=== PATIENT | female | born 1955 | race African-American/Black ===

== ENCOUNTER 2016-06-27 19:51 | Inpatient (IN) | payer OTHER ==
[~2016-06-27] VITALS: Ht 167.6 cm; Wt 83.9 kg
[~2016-06-27 19:51] MED LIST: ALBU18HF2 INH; AMLO5TAB2 PO; ATOR40TA GT; BENZ200C45 PO; BUDE10.2 IH; CARI350T27 PO; CARV25TA2 PO; DOCU-270 PO; FURO80TA3 PO; GLIP10TA11 PO; HYDR100T27 PO; LOSA50TA21 PO; METO5TAB2 PO; MONT10TA22 PO; OMEP40CA37 PO; OXYC-164 PO; TEMA15CA PO
--- NOTE | 2016-06-27 20:04 | NUR ---
PT BIB DAUGHTER TO ER BED 09. C/O NAUSEA AND VOMITING. JUST CAME IN FROM DIALYSIS. NOTED COUGH AND CONGESTION. HX OF BRONCHITIS. ALSO PRESENTS W/ LT THIGH AREA BRUSING. DAUGTHER STATES GETTING WORST. PLACED ON MONITOR. AWAITINGMD EVAL.
--- NOTE | 2016-06-27 20:06 | NUR ---
DR KING AT BEDSIDE FOR EVAL.
--- NOTE | 2016-06-27 20:25 | NUR ---
IV LINE STARTED BLOOD DRAWN ANS SENT TO LAB.
[2016-06-27 20:34] LABS: BASOPHILS % (AUTO) 0.3 % (0.0-2.0); EOSINOPHILS # (AUTO) 0.2 /CMM (0.0-0.7); EOSINOPHILS % (AUTO) 1.9 % (0.0-6.0); HEMATOCRIT 40 % (33-45); HEMOGLOBIN 13.1 g/dL (11.5-14.8); LYMPHOCYTES # (AUTO) 0.8 /CMM (0.8-4.8); LYMPHOCYTES % (AUTO) 6.3 % (20.0-44.0); MEAN CORPUSCULAR HEMOGLOBIN 32 PG (26.0-33.0); MEAN CORPUSCULAR HGB CONC 33 g/dl (31.0-36.0); MEAN CORPUSCULAR VOLUME 98 fL (82-100); MONOCYTES # (AUTO) 1.5 /CMM (0.1-1.30); MONOCYTES % (AUTO) 11.9 % (2.0-12.0); NEUTROPHILS # (AUTO) 10.3 /CMM (1.8-8.9); NEUTROPHILS % (AUTO) 79.6 % (43.0-81.0); PLATELET COUNT (AUTO) 379 /CMM (150-450); RDW COEFFICIENT OF VARIATION 14.9 (11.5-15.0); RED BLOOD CELL COUNT(AUTO) 4.11 MIL/uL (4.0-5.2); WHITE BLOOD COUNT (AUTO) 12.8 K/uL (4.3-11.0)
[2016-06-27 20:41] LABS: CALCIUM, SERUM 10.7 mg/dL (8.5-10.1); CARBON DIOXIDE 25 mmol/L (21-32); CHLORIDE 97 mmol/L (98-107); CREATININE 6.1 mg/dL (0.6-1.3); GFR 9 mL/min (>60); GLUCOSE 117 mg/dL (74-106); POTASSIUM 4.6 mmol/L (3.5-5.1); SODIUM SERUM 134 mmol/L (136-145); UREA NITROGEN, BLOOD 38 mg/dL (7-18)
[2016-06-27 20:45] LABS: INR 2.4 (0.87-1.13); PROTHROMBIN TIME 26.1 SECS (9.5-12.7)
[2016-06-27 20:47] LABS: ALANINE AMINOTRANSFERASE 16 U/L (12-78); ALBUMIN 2.8 g/dL (3.4-5.0); ALKALINE PHOSPHATASE 113 U/L (46-116); ASPARTATE AMINOTRANSFERASE 11 U/L (15-37); BILIRUBIN,DIRECT 0.1 mg/dL (0.0-0.2); BILIRUBIN,TOTAL 1.1 mg/dL (0.2-1.0); TOTAL PROTEIN, SERUM 6.9 g/dL (6.4-8.2)
[2016-06-27 20:49] LABS: TROPONIN I < 0.017 ng/mL (0.00-0.056)
[2016-06-27 20:56] LABS: LACTIC ACID 0.7 mmol/L (0.4-2.0)
[2016-06-27] MEDS ORDERED: VANCOMYCIN 1 GM in IV D5W 250 ML IV ONE (21:30)
[2016-06-27 21:33] LABS: SERUM AMMONIA 7 umol/L (11-32)
[2016-06-27] MEDS ORDERED: IV SET PRIMARY PUMP SET 1 EA INFUS.SET MC ONE (21:37)
[2016-06-27] MEDS ORDERED: VANCOMYCIN 1 GM VIAL ONE (21:37)
[2016-06-27] MEDS ORDERED: IV D5W 250 ML IV ONE (21:37)
--- NOTE | 2016-06-27 21:58 | NUR ---
U/S TECH AT BEDSIDE FOR LLE DUPLEX ULTRASOUND.
[2016-06-27] MEDS ORDERED: Z GUARD REMEDY 2 OZ OINT TP PRN (22:00)
[2016-06-27] MEDS ORDERED: ONDANSETRON HCL/PF 4 MG/2 ML VIAL IVP PRN (22:00)
[2016-06-27] MEDS ORDERED: MAGNESIUM HYDROXIDE 30 ML UDC PO PRN (22:00)
--- NOTE | 2016-06-27 22:02 | NUR ---
REPORT GIVEN TO BECKY. PT AWAITING TRANSFER TO FLOOR.
[2016-06-27 22:30] VITALS: BP 123/83
--- NOTE | 2016-06-27 22:30 | NUR ---
METAL MOCKUP MAKER INITIAL NOTE RECEIVED REPORT FROM MORIAH DORAN RN. PT WAS BROUGHT IN BY DAUGHTER FOLLOWING DIALYSIS. PT IS IN BED. SHE IS A/O X3 BUT IS SLUGGISH TO RESPOND TO QUESTIONS. LUNG SOUNDS DIMINISHED. BOWEL SOUNDS PRESENT. LEFT AV SHUNT DIALYSIS ACCESS, SCHEDULED T, TH, SAT BUT MISSED TH AND WENT TODAY INSTEAD. RIGHT 20G AC. LEFT LOWER EXTREMITY SWELLING, REDNESS PAIN. AWAITING ULTRASOUND RESULTS TO R/O DVT. MULTIPLE SKIN ISSUES, PICTURES TAKEN AND FILED IN CHART. BED IN LOW LOCKED POSITION WITH CALL LIGHT IN REACH. WILL CONTINUE TO MONITOR.
[2016-06-27 22:37] VITALS: BP 123/83
[2016-06-27] MEDS ORDERED: VANCOMYCIN 1 GM in IV D5W 250 ML IV SCH (23:00)
[2016-06-27] MEDS ORDERED: DEXTROSE 50%-WATER 50 ML DISP.SYRIN IV PRN (23:00)
--- NOTE | 2016-06-27 23:05 | NUR ---
DRAWING CHECKER- SIDRA VALENTE GIVEN IN ER.
[2016-06-28] VITALS: BP 138/67
[2016-06-28 04:00] VITALS: BP 121/49
[2016-06-28] MEDS: BLOOD SUGAR DIAGNOSTIC 1 EACH STRIP VI SCH ×4 (06:44→21:46)
--- NOTE | 2016-06-28 07:00 | NUR ---
RN NOTE RECEIVED ON ON BED, A/O X2, RESPIRATION EVEN AND UNLABORED, ON TELE SR IN 60'S , BUT IS SLUGGISH TO RESPOND TO QUESTIONS. LUNG SOUNDS DIMINISHED. BOWEL SOUNDS PRESENT. IV SITE ON R AC #20 CDI, SR UPx3, BED IN LOWEST POSITION AND LOCKED , CALL LIGHT WITHIN EASY REACH , WILL CONTINUE TO MONITOR PT CLOSELY AND NOTIFY MD FOR ANY SIGNIFICANT CHANGES .
[2016-06-28 07:11] LABS: BASOPHILS % (AUTO) 0.3 % (0.0-2.0); EOSINOPHILS # (AUTO) 0.4 /CMM (0.0-0.7); EOSINOPHILS % (AUTO) 2.9 % (0.0-6.0); HEMATOCRIT 37 % (33-45); HEMOGLOBIN 12.6 g/dL (11.5-14.8); LYMPHOCYTES # (AUTO) 1.6 /CMM (0.8-4.8); LYMPHOCYTES % (AUTO) 13.2 % (20.0-44.0); MEAN CORPUSCULAR HEMOGLOBIN 33 PG (26.0-33.0); MEAN CORPUSCULAR HGB CONC 34 g/dl (31.0-36.0); MEAN CORPUSCULAR VOLUME 99 fL (82-100); MONOCYTES # (AUTO) 1.9 /CMM (0.1-1.30); MONOCYTES % (AUTO) 15.6 % (2.0-12.0); NEUTROPHILS # (AUTO) 8.2 /CMM (1.8-8.9); PLATELET COUNT (AUTO) 321 /CMM (150-450); RDW COEFFICIENT OF VARIATION 15.8 (11.5-15.0); RED BLOOD CELL COUNT(AUTO) 3.78 MIL/uL (4.0-5.2)
[2016-06-28 07:44] LABS: ALBUMIN 2.6 g/dL (3.4-5.0); BILIRUBIN,TOTAL 1.2 mg/dL (0.2-1.0); CALCIUM, SERUM 10.1 mg/dL (8.5-10.1); CREATININE 6.9 mg/dL (0.6-1.3); MAGNESIUM 2.9 mg/dL (1.8-2.4); PHOSPHORUS 5.8 mg/dL (2.5-4.9); TOTAL PROTEIN, SERUM 6.5 g/dL (6.4-8.2)
[2016-06-28 08:00] VITALS: BP 137/53
[2016-06-28 08:53] LABS: EOSINOPHILS % (MANUAL) 4 % (0-4); LYMPHOCYTES % (MANUAL) 16 % (16-48); MONOCYTES % (MANUAL) 15 % (0-11.0); NEUTROPHILS % (MANUAL) 65 (42-76); PLATELET ESTIMATE ADEQUATE
[2016-06-28 08:54] LABS: ANISOCYTOSIS 1+
[2016-06-28] MEDS ORDERED: BENZONATATE 100 MG CAPSULE PO PRN (09:00)
[2016-06-28] MEDS ORDERED: FUROSEMIDE 80 MG TABLET PO SCH (09:00)
[2016-06-28] MEDS: AMLODIPINE BESYLATE 5 MG TABLET PO SCH (09:12)
[2016-06-28] MEDS: CARVEDILOL 12.5 MG TABLET PO SCH ×2 (09:13→21:47)
[2016-06-28] MEDS: hydrALAZINE HCL 50 MG TABLET PO SCH ×3 (09:13→17:15)
[2016-06-28] MEDS: DOCUSATE SODIUM 100 MG CAPSULE PO SCH (09:13)
[2016-06-28] MEDS: PANTOPRAZOLE 40 MG VIAL IV SCH (09:14)
[2016-06-28] MEDS: ATORVASTATIN 40 MG TABLET PO SCH (09:14)
[2016-06-28] MEDS: LOSARTAN POTASSIUM 50 MG TABLET PO SCH ×2 (09:14→17:14)
[2016-06-28] MEDS: MONTELUKAST SODIUM (10MG) 10 MG TABLET PO SCH (09:14)
[2016-06-28] MEDS: FUROSEMIDE 40 MG TABLET PO SCH (09:20)
[2016-06-28] MEDS: glipiZIDE 10 MG TABLET PO SCH ×3 (09:20→17:00)
[2016-06-28] MEDS ORDERED: VANCOMYCIN 500 MG in IV D5W 100 ML IV PRN (09:30)
[2016-06-28 10:25] LABS: TROPONIN I < 0.017 ng/mL (0.00-0.056)
[2016-06-28] MEDS: METOCLOPRAMIDE HCL 10 MG TABLET PO SCH (11:07)
[2016-06-28 12:00] VITALS: BP 141/65
[2016-06-28 12:03] LABS: THYROID STIMULATING HORMONE 1.002 uIU/mL (0.358-3.74)
[2016-06-28] MEDS: HYDROCODONE/APAP 5/325MG 1 EACH TABLET PO PRN (14:34)
[2016-06-28] MEDS ORDERED: FEE PK DOSING 1 MIN EA MC ONE (14:55)
[2016-06-28 16:00] VITALS: BP 116/49
--- NOTE | 2016-06-28 16:33 | NUR ---
RN NOTES PT'S DAUGHTER STATED WILL BRING SYMBICORT FROM HOME
--- NOTE | 2016-06-28 17:00 | NUR ---
RN NOTES DR GARCIA NOTIFIED REGARDING LOW BG , GLUCOTROL HELD PER MD ORDER , PT IS A/O , NO HYPOGLYCEMIA SIGN AND SYMPTON NOTED. ENCOURAGED PO , CONTINUE TO MONITOR PT CLOSELY ,
--- NOTE | 2016-06-28 17:00 | NUR ---
RN NOTES BG=49, PT IS SLIGHTLY DRAWZY , WAKES UP TO VERBAS STIMULI, AND VERBALLY RESPONDING, ONE AMP OF D50 GIVEN IV , BG WENT UP TO 193,
--- NOTE | 2016-06-28 18:50 | NUR ---
RN NOTES PT STABLE , NO DISTRESS NOTED MEDICATED PER MD ORDER ,SR UP x3, BED ALARM ON , NO DISTRESS NOTED
--- NOTE | 2016-06-28 19:30 | NUR ---
MS RN OPENING NOTES: PATIENT SITTING ON BED, AOX2, ON ROOM AIR, BREATHING EVEN AND UNLABORED. BREATH SOUNDS CLEAR TO AUSCULTATION. APPEARS CALM BUT DOES STATE THAT SHE HAS GENERALIZED PAIN A 7-8/10. PIV ACCESS OVER RAC G 20 INTACT AND PATENT TO FLUSH. REINFORCED DRESSING. PATIENT HAS UZMA OLD AV SHUNT, THAT IS NEGATIVE FOR BRUIT. PROVIDED FOR COMFORT AND SAFETY. ADVISED PATIENT ON NPO FOR PROCEDURE TOMORROW. WILL CONT TO MONITOR. Addendum: 06/30/16 at 0017 by PRUDENCIO SANTO RN PLEASE DISREGARD. WRONG DATE OF DOCUMENTATION
--- NOTE | 2016-06-28 19:30 | NUR ---
MS RN INITIAL NOTE RECEIVED REPORT FROM FRANDY SILVER. PT IN BED, AWAKE AND ALERT WITH PERIODS OF CONFUSION. UPON ENTERING ROOM PT WAS ATTEMPTING TO CLIMB OUT OF BED AND WAS VERBALLY AGGRESSIVE. PT WAS REDIRECTED AND PUT BACK IN BED. LUNG SOUNDS DIMINISHED. BOWEL SOUNDS PRESENT. PULSES PRESENT IN ALL EXTREMITIES. LEFT UPPER ARM AV SHUNT, BRUIT NOT PRESENT, THRILL PRESENT, HD NURSE AND NEPHROLOGY GROUP NOTIFIED. IV PATENT AND INTACT. BED IN LOW LOCKED POSITION, CALL LIGHT WITHIN REACH. WILL CONTINUE TO MONITOR. BED ALARM ON FOR SAFETY PURPOSES.
[2016-06-28 20:00] VITALS: BP 137/55
[2016-06-29 04:00] VITALS: BP 126/54
[2016-06-29 07:27] LABS: BASOPHILS % (AUTO) 0.2 % (0.0-2.0); EOSINOPHILS # (AUTO) 0.3 /CMM (0.0-0.7); EOSINOPHILS % (AUTO) 2.6 % (0.0-6.0); HEMATOCRIT 37 % (33-45); HEMOGLOBIN 12.1 g/dL (11.5-14.8); LYMPHOCYTES # (AUTO) 1.8 /CMM (0.8-4.8); LYMPHOCYTES % (AUTO) 15.7 % (20.0-44.0); MEAN CORPUSCULAR HEMOGLOBIN 32 PG (26.0-33.0); MEAN CORPUSCULAR HGB CONC 33 g/dl (31.0-36.0); MEAN CORPUSCULAR VOLUME 99 fL (82-100); MONOCYTES # (AUTO) 1.8 /CMM (0.1-1.30); MONOCYTES % (AUTO) 16.3 % (2.0-12.0); NEUTROPHILS # (AUTO) 7.3 /CMM (1.8-8.9); NEUTROPHILS % (AUTO) 65.2 % (43.0-81.0); PLATELET COUNT (AUTO) 334 /CMM (150-450); RDW COEFFICIENT OF VARIATION 15.4 (11.5-15.0); RED BLOOD CELL COUNT(AUTO) 3.76 MIL/uL (4.0-5.2); WHITE BLOOD COUNT (AUTO) 11.2 K/uL (4.3-11.0)
--- NOTE | 2016-06-29 07:29 | NUR ---
RN MS INITIAL NOTES RECEIVED REPORT FROM PM NURSE, PT AWAKE AND ALERT A&O X2 CONFUSED AT TIMES, ON RA SAT ABOVE 97%, RT AC 20 G LT AV SHUNT, ALL INTACT, ALL NEEDS MET, ALL SAFETY MEASURES INITIATED, SIDE RAILS X2, BED LOW AND LOCKED, CALL LIGHT WITHIN REACH.
[2016-06-29] MEDS: BLOOD SUGAR DIAGNOSTIC 1 EACH STRIP VI SCH ×4 (07:31→22:02)
[2016-06-29 07:49] LABS: ALBUMIN 2.6 g/dL (3.4-5.0); BILIRUBIN,TOTAL 1.2 mg/dL (0.2-1.0); CALCIUM, SERUM 9.9 mg/dL (8.5-10.1); PHOSPHORUS 5.1 mg/dL (2.5-4.9); POTASSIUM 4.6 mmol/L (3.5-5.1); TOTAL PROTEIN, SERUM 6.7 g/dL (6.4-8.2)
[2016-06-29 08:00] VITALS: BP 141/68
[2016-06-29] MEDS: PANTOPRAZOLE 40 MG VIAL IV SCH (08:33)
[2016-06-29] MEDS: SYMBICORT INH SCH ×2 (08:33→16:14)
[2016-06-29] MEDS: MONTELUKAST SODIUM (10MG) 10 MG TABLET PO SCH (08:33)
[2016-06-29] MEDS: hydrALAZINE HCL 50 MG TABLET PO SCH ×3 (08:34→16:14)
[2016-06-29] MEDS: METOCLOPRAMIDE HCL 10 MG TABLET PO SCH (08:34)
[2016-06-29] MEDS: ATORVASTATIN 40 MG TABLET PO SCH (08:35)
[2016-06-29] MEDS: AMLODIPINE BESYLATE 5 MG TABLET PO SCH (08:35)
[2016-06-29] MEDS: glipiZIDE 10 MG TABLET PO SCH ×3 (08:35→16:13)
[2016-06-29] MEDS: CARVEDILOL 12.5 MG TABLET PO SCH ×2 (08:35→21:04)
[2016-06-29] MEDS: LOSARTAN POTASSIUM 50 MG TABLET PO SCH ×2 (08:35→16:14)
[2016-06-29] MEDS: DOCUSATE SODIUM 100 MG CAPSULE PO SCH (08:35)
[2016-06-29] MEDS: FUROSEMIDE 40 MG TABLET PO SCH (08:35)
[2016-06-29 09:25] LABS: BAND % (MANUAL) 2 % (0.0-5.0); LYMPHOCYTES % (MANUAL) 15 % (16-48); NEUTROPHILS % (MANUAL) 66 (42-76)
[2016-06-29 09:26] LABS: ANISOCYTOSIS 1+; BASOPHILS % (MANUAL) 0 % (0.0-2.0); EOSINOPHILS % (MANUAL) 3 % (0-4); MONOCYTES % (MANUAL) 14 % (0-11.0); PLATELET ESTIMATE ADEQUATE
--- NOTE | 2016-06-29 11:49 | NUR ---
RN MS NOTES PT HAS CLOTTED LT AV SHUNT, DR MATTEHWS AWARE AND STATED WILL NEED NEW HD ACCESS TO RECEIVE HD.
[2016-06-29] MEDS ORDERED: SODIUM POLYSTYRENE SULFONATE 15 G/60 ML BOTTLE PO ONE (15:00)
[2016-06-29 16:00] VITALS: BP 96/67
[2016-06-29] MEDS: ACETAMINOPHEN 325 MG TABLET PO PRN (16:18)
--- NOTE | 2016-06-29 18:21 | NUR ---
RN MS ENDING NOTES PT STABLE WITH NO ACUTE CHANGES NOTED, CONSENT SIGNED WITH DR ALMANZA FOR SURGERY TO TOMORROW FOR AV ACCESS, ALL NEEDS MET, PT WILL BE NPO AFTER MIDNIGHT.
--- NOTE | 2016-06-29 19:30 | NUR ---
MS RN OPENING NOTES: PATIENT SITTING ON BED, AOX2, ON ROOM AIR, BREATHING EVEN AND UNLABORED. BREATH SOUNDS CLEAR TO AUSCULTATION. APPEARS CALM BUT DOES STATE THAT SHE HAS GENERALIZED PAIN A 7-8/10. PIV ACCESS OVER RAC G 20 INTACT AND PATENT TO FLUSH. REINFORCED DRESSING. PATIENT HAS UZMA OLD AV SHUNT, THAT IS NEGATIVE FOR BRUIT. PROVIDED FOR COMFORT AND SAFETY. ADVISED PATIENT ON NPO FOR PROCEDURE TOMORROW. WILL CONT TO MONITOR.
[2016-06-29 20:00] VITALS: BP_SYST 122; BP_SYST 126; BP_DIAS 67
[2016-06-29] MEDS: HYDROCODONE/APAP 5/325MG 1 EACH TABLET PO PRN (21:05)
--- NOTE | 2016-06-29 21:06 | NUR ---
RN NOTES: PATIENT COMPLAINED OF 7/10 GENERALIZED PAIN (DESCRIBED "ALL OVER"). ADMINISTERED NORCO 5-325 MG PO. WILL CONT TO MONITOR.
[2016-06-30 04:00] VITALS: BP 124/53
[2016-06-30] MEDS: ACETAMINOPHEN 325 MG TABLET PO PRN (05:40)
[2016-06-30] MEDS: BLOOD SUGAR DIAGNOSTIC 1 EACH STRIP VI SCH ×4 (06:33→21:50)
--- NOTE | 2016-06-30 06:45 | NUR ---
MS RN CLOSING NOTES: PATIENT IN BED, AOX2, ON ROOM AIR, BREATHING EVEN AND UNLABORED. APPEARS CALM AND IN NO DISTRESS. MAINTAINED ON NPO FOR PROCEDURE TODAY. BLOOD SUGAR CHECKED AT 93MG/DL. DUE MEDS GIVEN. PROVIDED FOR COMFORT AND SAFETY. WILL ENDORSE TO AM RN FOR TAWNY.
[2016-06-30 06:48] LABS: BASOPHILS # (AUTO) 0.1 /CMM (0.0-0.2); BASOPHILS % (AUTO) 0.6 % (0.0-2.0); EOSINOPHILS # (AUTO) 0.4 /CMM (0.0-0.7); HEMATOCRIT 38 % (33-45); HEMOGLOBIN 12.5 g/dL (11.5-14.8); LYMPHOCYTES # (AUTO) 1.5 /CMM (0.8-4.8); LYMPHOCYTES % (AUTO) 15.4 % (20.0-44.0); MEAN CORPUSCULAR HEMOGLOBIN 32 PG (26.0-33.0); MEAN CORPUSCULAR HGB CONC 33 g/dl (31.0-36.0); MEAN CORPUSCULAR VOLUME 98 fL (82-100); MONOCYTES # (AUTO) 1.5 /CMM (0.1-1.30); MONOCYTES % (AUTO) 14.8 % (2.0-12.0); NEUTROPHILS # (AUTO) 6.4 /CMM (1.8-8.9); NEUTROPHILS % (AUTO) 65.2 % (43.0-81.0); PLATELET COUNT (AUTO) 333 /CMM (150-450); RDW COEFFICIENT OF VARIATION 15.3 (11.5-15.0); RED BLOOD CELL COUNT(AUTO) 3.88 MIL/uL (4.0-5.2); WHITE BLOOD COUNT (AUTO) 9.8 K/uL (4.3-11.0)
[2016-06-30 07:00] LABS: INR 1.39 (0.87-1.13); PROTHROMBIN TIME 15.2 SECS (9.5-12.7)
[2016-06-30 07:14] LABS: CALCIUM, SERUM 9.5 mg/dL (8.5-10.1); MAGNESIUM 2.9 mg/dL (1.8-2.4); PHOSPHORUS 5.5 mg/dL (2.5-4.9); POTASSIUM 5.4 mmol/L (3.5-5.1)
--- NOTE | 2016-06-30 07:15 | NUR ---
RN INITIAL NOTES RECEIVED PT IN BED, AWAKE, A/O X4, ABLE TO MAKE NEEDS KNOWN, WITH PERIODS OF CONFUSION, PT IS ON RA, SATING WELL, NO S.S OF RESP. DISTRESS OR SOB NOTED AT THIS TIME, PT IS CURRENTLY NPO AT THIS TIME, PT IS NOTED WITH MULTIPLE SKIN ISSUES, PT HAS RAC # 20G,SL, C/D/I/PATENT, FLUSHING WELL, NO S/S OF INFECTION/ INFILTRATION NOTED AT THIS TIME, UZMA AV SHUNT, - BRUIT, - THRILL, ALL SAFETY MEASURES IN PLACE AT ALL TIMES,CALL LIGHT WITHIN EASY REACH, WILL MONITOR PT CLOSELY FOR CHANGES
[2016-06-30 07:21] LABS: CREATININE 8.3 mg/dL (0.6-1.3)
[2016-06-30 08:00] VITALS: BP 103/49
[2016-06-30] MEDS: DOCUSATE SODIUM 100 MG CAPSULE PO SCH (08:29)
[2016-06-30] MEDS: CARVEDILOL 12.5 MG TABLET PO SCH ×2 (08:29→21:00)
[2016-06-30] MEDS: hydrALAZINE HCL 50 MG TABLET PO SCH ×3 (08:29→17:00)
[2016-06-30] MEDS: LOSARTAN POTASSIUM 50 MG TABLET PO SCH ×2 (08:30→17:00)
[2016-06-30] MEDS: ATORVASTATIN 40 MG TABLET PO SCH (08:30)
[2016-06-30] MEDS: AMLODIPINE BESYLATE 5 MG TABLET PO SCH (08:30)
[2016-06-30] MEDS: FUROSEMIDE 40 MG TABLET PO SCH (08:30)
[2016-06-30] MEDS: glipiZIDE 10 MG TABLET PO SCH ×3 (08:30→17:04)
[2016-06-30] MEDS: METOCLOPRAMIDE HCL 10 MG TABLET PO SCH (08:31)
[2016-06-30] MEDS: MONTELUKAST SODIUM (10MG) 10 MG TABLET PO SCH (08:31)
[2016-06-30] MEDS: PANTOPRAZOLE 40 MG VIAL IV SCH (09:01)
[2016-06-30] MEDS: SYMBICORT INH SCH ×2 (09:01→17:05)
--- NOTE | 2016-06-30 11:27 | NUR ---
RN NOTES BS 65, PT IS CURRENTLY NPO FOR SURGERY
--- NOTE | 2016-06-30 12:47 | NUR ---
RN NOTES PT WAS TAKEN TO OR
[2016-06-30] MEDS ORDERED: LIDOCAINE HCL/PF 1% 30 ML SDV ONE (12:55)
[2016-06-30] MEDS ORDERED: HEPARIN SODIUM, PORCINE 1,000 UNIT/ML VIAL ONE (12:55)
[2016-06-30] MEDS ORDERED: FENTANYL PF 100MCG/2ML AMPUL ONE (13:06)
[2016-06-30] MEDS ORDERED: MIDAZOLAM HCL 2 MG/2ML VIAL ONE (13:06)
[2016-06-30] MEDS ORDERED: VANCOMYCIN 1 GM in IV D5W 250ml IV ONE (13:30)
[2016-06-30] MEDS ORDERED: BUPIVACAINE 0.5 % PF 150 MG/30 ML VIAL ONE (15:02)
[2016-06-30] MEDS ORDERED: CELLULOSE,OXIDIZED 1 EACH EACH MC ONE (15:03)
[2016-06-30 16:00] VITALS: BP 122/47
[2016-06-30 17:00] VITALS: BP 122/47
--- NOTE | 2016-06-30 17:00 | NUR ---
RN NOTES PT RETURNED BACK FROM OR, PT IN STABLE CONDITION, VVS, PT PLACED ON 2L NC, WILL MONITOR CLOSELY FOR CHANGES
[2016-06-30] MEDS: HYDROCODONE/APAP 5/325MG 1 EACH TABLET PO PRN (17:09)
[2016-06-30 17:29] LABS: BASOPHILS # (AUTO) 0.1 /CMM (0.0-0.2); BASOPHILS % (AUTO) 0.5 % (0.0-2.0); EOSINOPHILS # (AUTO) 0.5 /CMM (0.0-0.7); EOSINOPHILS % (AUTO) 4.2 % (0.0-6.0); HEMATOCRIT 36 % (33-45); HEMOGLOBIN 11.7 g/dL (11.5-14.8); LYMPHOCYTES # (AUTO) 1.6 /CMM (0.8-4.8); LYMPHOCYTES % (AUTO) 13.6 % (20.0-44.0); MEAN CORPUSCULAR HEMOGLOBIN 32 PG (26.0-33.0); MEAN CORPUSCULAR HGB CONC 33 g/dl (31.0-36.0); MEAN CORPUSCULAR VOLUME 99 fL (82-100); MONOCYTES # (AUTO) 1.2 /CMM (0.1-1.30); MONOCYTES % (AUTO) 10.4 % (2.0-12.0); NEUTROPHILS # (AUTO) 8.4 /CMM (1.8-8.9); NEUTROPHILS % (AUTO) 71.3 % (43.0-81.0); PLATELET COUNT (AUTO) 387 /CMM (150-450); RDW COEFFICIENT OF VARIATION 15.6 (11.5-15.0); RED BLOOD CELL COUNT(AUTO) 3.64 MIL/uL (4.0-5.2); WHITE BLOOD COUNT (AUTO) 11.8 K/uL (4.3-11.0)
[2016-06-30 17:49] LABS: CALCIUM, SERUM 9.3 mg/dL (8.5-10.1); POTASSIUM 4.9 mmol/L (3.5-5.1)
[2016-06-30 17:55] LABS: CREATININE 8.7 mg/dL (0.6-1.3)
[2016-06-30] MEDS ORDERED: SECONDARY IV SET 1 EA INFUS.SET MC ONE (18:08)
--- NOTE | 2016-06-30 18:25 | NUR ---
RN CLOSING NOTES PT REMAINED STABLE DURING SHIFT, ALL MEDICATIONS GIVEN, PT KEPT CLEAN AND DRY, IV, REMAINS C/D/I/PATENT, PT IS CURRENTLY RECEIVING HD, ALL TREATMENTS GIVEN, ALL SAFETY MEASURES IN PLACE AT ALL TIMES, CALL LIGHT WITHIN EASY, WILL GIVE REPORT TO PM RN FOR TAWNY
[2016-06-30] MEDS ORDERED: ALBUMIN 25% 25 GM in PREMIX 1 EA IV ONE (19:00)
[2016-06-30 20:00] VITALS: BP 101/49
--- NOTE | 2016-06-30 20:38 | NUR ---
SPOKE TO PHARMACIST ABOUT PT'S SCHEDULED 1300 VANCOMYCIN 1 GM THAT WAS NOT GIVEN. PT WAS GIVEN VANCOMYCIN 1 GM PREOP TODAY. PER PHARMACIST, DO NOT ADMINISTER MED. VANCO TROUGH WILL BE DRAWN TOMORROW MORNING AT 0700 AND WILL FOLLOW-UP THEN. PRIMARY NURSE ESTEFANIA MADE AWARE. WILL CONTINUE TO MONITOR.
[2016-06-30 21:00] VITALS: BP 101/49
--- NOTE | 2016-06-30 21:05 | NUR ---
RN NOTE RECEIVED REPORT. PT AAOX3, CONFUSED AT TIMES. NO C/O OF PAIN OR DISCOMFORT AT THIS TIME.. BREATHING EVEN AND NON-LABORED ON ROOM AIR. L ARM AV DRESSING INTACT, NO SIGNS OF BLEEDING. RAC IV INTACT AND PATENT S/L. ALL NEEDS ATTEND TO AT THIS TIME, CALL LIGHT IN REACH WILL ONT TO MONITOR.
[2016-06-30] MEDS: *INSULIN REGULAR(HUMULIN R)HUM 100 UNIT/ML VIAL SQ PRN (21:46)
[2016-07-01 04:00] VITALS: BP 114/51
[2016-07-01] MEDS: BLOOD SUGAR DIAGNOSTIC 1 EACH STRIP VI SCH ×4 (06:40→21:42)
[2016-07-01] MEDS: INSULIN REGULAR, HUMAN 100 UNIT/ML 3 ML VIAL SQ PRN ×3 (06:43→17:28)
--- NOTE | 2016-07-01 07:15 | NUR ---
RN MS INITIAL NOTES RECEIVED REPORT AND PT FROM PM NURSE, A&O X2-3 CONFUSED AND AGITATED AT TIMES, ON RA SAT ABOVE 97%, LT UPPER AV SHUNT, RT AC 20 G ALL INTACT AND PATENT, ALL NEEDS MET, ALL SAFETY MEASURES INITIATED, SIDE RAILS X2, BED LOW AND LOCKED, CALL LIGHT WITHIN REACH, WILL CONTINUE TO MONITOR.
[2016-07-01 07:26] LABS: BASOPHILS # (AUTO) 0.1 /CMM (0.0-0.2); BASOPHILS % (AUTO) 1.2 % (0.0-2.0); EOSINOPHILS # (AUTO) 0.2 /CMM (0.0-0.7); EOSINOPHILS % (AUTO) 2.2 % (0.0-6.0); HEMATOCRIT 36 % (33-45); HEMOGLOBIN 11.9 g/dL (11.5-14.8); LYMPHOCYTES # (AUTO) 1.2 /CMM (0.8-4.8); LYMPHOCYTES % (AUTO) 12.3 % (20.0-44.0); MEAN CORPUSCULAR HEMOGLOBIN 32 PG (26.0-33.0); MEAN CORPUSCULAR HGB CONC 33 g/dl (31.0-36.0); MEAN CORPUSCULAR VOLUME 97 fL (82-100); MONOCYTES # (AUTO) 1.4 /CMM (0.1-1.30); MONOCYTES % (AUTO) 14.5 % (2.0-12.0); NEUTROPHILS # (AUTO) 6.8 /CMM (1.8-8.9); NEUTROPHILS % (AUTO) 69.8 % (43.0-81.0); PLATELET COUNT (AUTO) 363 /CMM (150-450); RDW COEFFICIENT OF VARIATION 15.1 (11.5-15.0); RED BLOOD CELL COUNT(AUTO) 3.69 MIL/uL (4.0-5.2); WHITE BLOOD COUNT (AUTO) 9.8 K/uL (4.3-11.0)
[2016-07-01 08:00] VITALS: BP 123/54
[2016-07-01 08:01] LABS: CALCIUM, SERUM 8.9 mg/dL (8.5-10.1); CREATININE 6.7 mg/dL (0.6-1.3); MAGNESIUM 2.6 mg/dL (1.8-2.4); PHOSPHORUS 4.4 mg/dL (2.5-4.9); POTASSIUM 4.9 mmol/L (3.5-5.1)
[2016-07-01] MEDS: MONTELUKAST SODIUM (10MG) 10 MG TABLET PO SCH (09:00)
[2016-07-01] MEDS: LOSARTAN POTASSIUM 50 MG TABLET PO SCH ×2 (09:02→16:16)
[2016-07-01] MEDS: PANTOPRAZOLE 40 MG VIAL IV SCH (09:02)
[2016-07-01] MEDS: DOCUSATE SODIUM 100 MG CAPSULE PO SCH (09:02)
[2016-07-01] MEDS: FUROSEMIDE 40 MG TABLET PO SCH (09:03)
[2016-07-01] MEDS: glipiZIDE 10 MG TABLET PO SCH ×3 (09:03→17:25)
[2016-07-01] MEDS: CARVEDILOL 12.5 MG TABLET PO SCH ×2 (09:03→21:27)
[2016-07-01] MEDS: hydrALAZINE HCL 50 MG TABLET PO SCH ×3 (09:03→16:16)
[2016-07-01] MEDS: ATORVASTATIN 40 MG TABLET PO SCH (09:03)
[2016-07-01] MEDS: METOCLOPRAMIDE HCL 10 MG TABLET PO SCH (09:03)
[2016-07-01] MEDS: SYMBICORT INH SCH ×2 (09:04→17:00)
[2016-07-01] MEDS: AMLODIPINE BESYLATE 5 MG TABLET PO SCH (09:04)
[2016-07-01 16:00] VITALS: BP 103/47
[2016-07-01] MEDS: POVIDONE-IODINE OINT 28.4 GM TUBE TP SCH (17:25)
--- NOTE | 2016-07-01 18:48 | NUR ---
RN MS ENDING NOTES PT STABLE, ALL DUE MEDS GIVEN, ALL NEEDS MET, BED BATH PROVIDED, HD NURSE CLEO DOING EXTRA HD WITH PT, WILL ENDORSE TO PM NURSE.
--- NOTE | 2016-07-01 18:51 | NUR ---
RN MS NOTES FINISHED HD WITH HD NURSE CLEO, 1.5 L OUTPUT.
--- NOTE | 2016-07-01 19:45 | NUR ---
RN NOTES RECEIVED PT SITTING ON THE BED. NO ACUTE RESP DISTRESS. AOX 3 VERBALIZED NEEDS. SATING 97% IN RA. COMPLAINING OF PAIN AT SCALE OF 8/10IN HER LEFT THIGH. NON PHARMACOLOGICAL INTERVENTION MADE FOR THE MEAN TIME. IV SITE ON RAC G 20 SL INTACT AND PATENT. UZMA AV SHUNT CLEANED WITH DRESSING. BED LOCKED AND IN LOWEST POSSIBLE POSITION. ENCOURAGED TO USED CALL LIGHT FOR IRRIGATIONIST. KEPT PT CLEAN AND DRY WILL CONTINUE TO MONITOR.
[2016-07-01 20:00] VITALS: BP 141/62
[2016-07-01] MEDS: HYDROCODONE/APAP 5/325MG 1 EACH TABLET PO PRN (20:06)
[2016-07-01] MEDS: *INSULIN REGULAR(HUMULIN R)HUM 100 UNIT/ML VIAL SQ PRN (21:45)
[2016-07-01] MEDS ORDERED: IPRATROPIUM NEB FS 0.5 MG/2.5 ML AMPUL.NEB NEB PRN (22:00)
[2016-07-01] MEDS: ZOLPIDEM TARTRATE 5 MG TABLET PO PRN (22:59)
[2016-07-02 04:00] VITALS: BP 123/55
[2016-07-02] MEDS ORDERED: IPRATROPIUM NEB FS 0.5 MG/2.5 ML AMPUL.NEB ONE (04:41)
[2016-07-02] MEDS ORDERED: ALBUTEROL FS 2.5 MG/0.5 ML VIAL.NEB ONE (04:41)
[2016-07-02] MEDS: ALBUTEROL FS 2.5 MG/0.5 ML VIAL.NEB NEB PRN ×2 (04:48→22:53)
[2016-07-02 05:23] VITALS: BP 123/55
[2016-07-02] MEDS: HYDROCODONE/APAP 5/325MG 1 EACH TABLET PO PRN ×2 (05:59→09:49)
[2016-07-02] MEDS: *INSULIN REGULAR(HUMULIN R)HUM 100 UNIT/ML VIAL SQ PRN ×2 (06:41→21:11)
--- NOTE | 2016-07-02 06:50 | NUR ---
RN NOTES PT STILL COMPLAINING OF PAIN ON HER LEFT THIGH AT SCALE OF 8/10.PRN PAIN MEIDICINE GIVEN ORDERED AND PER PATIENT IS NOT REALLY DOING ANYTHING AT ALL. EDUCATED PATIENT REGARDING THE RANGE OF EFFECTIVENESS OF MEDICINE TO WAIT FOR ABOUT AN HOUR FOR THE EFFECTIVENESS. AND IF ITS STILL NOT THEN THAT'S THE TIME THAT WE WILL CALL THE MD. ALL NEEDS ATTENDED. NO S/S OF HYPO OR HYPERGLYCEMIA SHOWS INSULIN PER SLIDING SCALE EFFECTIVE TO PATIENT. KEPT PT CLEAN AND COMFORTABLE IN BED. ASSISTED TO THE BATHROOM. WILL ENDORSED CONTINUITY OF CARE TO AM NURSE.
--- NOTE | 2016-07-02 07:20 | NUR ---
RN INTIAL NOTE RECEIVED PT FROM PM NURSE A/OX 2-3 PT ABLE TO VERBALIZE NEEDS AND WANTS. PT CONTINENT BRP C/O OF PAIN 10/06 WILL GIVE PAIN MEDICATION. IV RAC #20G SL, UZMA AV SHUNT REVISED. PT ON RA NO ACUTE C/O OF SOB . PT KEPT WARM AND DRY. ALL SAFETY MEASURES IN PLACE. WILL CONTINUE TO MONITOR CLOSELY.
[2016-07-02 07:29] LABS: BASOPHILS % (AUTO) 0.3 % (0.0-2.0); EOSINOPHILS # (AUTO) 0.4 /CMM (0.0-0.7); EOSINOPHILS % (AUTO) 3.9 % (0.0-6.0); HEMATOCRIT 32 % (33-45); HEMOGLOBIN 10.5 g/dL (11.5-14.8); LYMPHOCYTES # (AUTO) 1.1 /CMM (0.8-4.8); LYMPHOCYTES % (AUTO) 11.3 % (20.0-44.0); MEAN CORPUSCULAR HEMOGLOBIN 32 PG (26.0-33.0); MEAN CORPUSCULAR HGB CONC 33 g/dl (31.0-36.0); MEAN CORPUSCULAR VOLUME 98 fL (82-100); MONOCYTES # (AUTO) 1.6 /CMM (0.1-1.30); MONOCYTES % (AUTO) 15.8 % (2.0-12.0); NEUTROPHILS # (AUTO) 6.8 /CMM (1.8-8.9); NEUTROPHILS % (AUTO) 68.7 % (43.0-81.0); PLATELET COUNT (AUTO) 254 /CMM (150-450); RED BLOOD CELL COUNT(AUTO) 3.25 MIL/uL (4.0-5.2); WHITE BLOOD COUNT (AUTO) 9.9 K/uL (4.3-11.0)
[2016-07-02] MEDS: BLOOD SUGAR DIAGNOSTIC 1 EACH STRIP VI SCH ×2 (07:30→11:56)
[2016-07-02 07:48] LABS: CALCIUM, SERUM 8.3 mg/dL (8.5-10.1); CREATININE 5.8 mg/dL (0.6-1.3); POTASSIUM 4.4 mmol/L (3.5-5.1)
[2016-07-02 07:54] LABS: MAGNESIUM 2.2 mg/dL (1.8-2.4)
[2016-07-02 08:00] VITALS: BP 123/37
[2016-07-02] MEDS: FUROSEMIDE 40 MG TABLET PO SCH (08:29)
[2016-07-02] MEDS: glipiZIDE 10 MG TABLET PO SCH ×3 (08:30→16:27)
[2016-07-02] MEDS: ATORVASTATIN 40 MG TABLET PO SCH (08:31)
[2016-07-02] MEDS: DOCUSATE SODIUM 100 MG CAPSULE PO SCH (08:31)
[2016-07-02] MEDS: MONTELUKAST SODIUM (10MG) 10 MG TABLET PO SCH (08:31)
[2016-07-02] MEDS: PANTOPRAZOLE 40 MG VIAL IV SCH (08:33)
[2016-07-02] MEDS: CARVEDILOL 12.5 MG TABLET PO SCH ×2 (08:41→20:37)
[2016-07-02] MEDS: hydrALAZINE HCL 50 MG TABLET PO SCH ×3 (08:41→16:28)
[2016-07-02] MEDS: AMLODIPINE BESYLATE 5 MG TABLET PO SCH (08:42)
[2016-07-02] MEDS: SYMBICORT INH SCH ×2 (09:00→16:30)
[2016-07-02] MEDS: LOSARTAN POTASSIUM 50 MG TABLET PO SCH ×2 (09:00→16:27)
[2016-07-02] MEDS: METOCLOPRAMIDE HCL 10 MG TABLET PO SCH (09:47)
[2016-07-02] MEDS: POVIDONE-IODINE OINT 28.4 GM TUBE TP SCH ×2 (09:47→16:29)
[2016-07-02] MEDS: INSULIN REGULAR, HUMAN 100 UNIT/ML 3 ML VIAL SQ PRN ×2 (12:01→17:30)
[2016-07-02] MEDS ORDERED: DEXTROSE 50%-WATER 50 ML DISP.SYRIN IV PRN (14:30)
[2016-07-02] MEDS: oxyCODONE/APAP (5/325 MG) 1 UDTAB TABLET PO PRN ×2 (16:27→20:38)
[2016-07-02] MEDS: BLOOD SUGAR DIAGNOSTIC 1 EACH STRIP IN SCH ×2 (18:14→21:11)
--- NOTE | 2016-07-02 19:18 | NUR ---
RN INTIAL NOTE A/OX 2-3 PT ABLE TO VERBALIZE NEEDS AND WANTS. PT CONTINENT BRP. IV RFA #22G SL INTACT, UZMA AV SHUNT REVISED AND INTACT. PT ON RA NO ACUTE C/O OF SOB . PT KEPT WARM AND DRY. ALL SAFETY MEASURES IN PLACE. ALL MEDICATION GIVEN ALL ORDERS CARRIED OUT. REPORT GIVEN TO PM NURSE FOR TAWNY. Addendum: 07/02/16 at 1921 by DO COLEMAN RN RN CLOSING NOTE
--- NOTE | 2016-07-02 19:20 | NUR ---
RN NOTES PT SITTING ON THE BED. NO ACUTE RESP DISTRESS. AOX 3 VERBALIZED NEEDS. SATING 97% IN RA. COMPLAINING OF PAIN AT SCALE OF 6/10 IN HER LEFT THIGH. LEFT THIGHT WITH CLEANED AND INTACT DRESSING, NON PHARMACOLOGICAL INTERVENTION MADE. ENCOURAGED TO REPOSITION WHILE ON BED. IV SITE ON RFA G 22 SL INTACT AND PATENT. UZMA AV SHUNT CLEANED WITH DRESSING. BED LOCKED AND IN LOWEST POSSIBLE POSITION. ENCOURAGED TO USED CALL LIGHT FOR LOCK TECHNICIAN. KEPT CLEAN AND DRY WILL CONTINUE TO MONITOR.
[2016-07-02 20:00] VITALS: BP 106/55
[2016-07-02] MEDS: MAG HYDROX/AL HYDROX/SIMETH 30 ML UDC PO PRN (22:02)
[2016-07-02] MEDS: IPRATROPIUM NEB FS 0.5 MG/2.5 ML AMPUL.NEB NEB PRN (22:52)
[2016-07-03] MEDS: MAG HYDROX/AL HYDROX/SIMETH 30 ML UDC PO PRN (03:03)
[2016-07-03 04:00] VITALS: BP 114/56
[2016-07-03] MEDS: oxyCODONE/APAP (5/325 MG) 1 UDTAB TABLET PO PRN ×5 (04:45→21:31)
[2016-07-03] MEDS: INSULIN REGULAR, HUMAN 100 UNIT/ML 3 ML VIAL SQ PRN ×4 (06:38→17:23)
[2016-07-03] MEDS: BLOOD SUGAR DIAGNOSTIC 1 EACH STRIP IN SCH ×4 (06:40→21:33)
--- NOTE | 2016-07-03 06:50 | NUR ---
RN NOTES PT IN STABLE CONDITION THROUGHOUT THE SHIFT. AFEBRILE. ALL NEEDS ATTENDED. PAIN MEDICINE GIVEN ORDERED EFFECTIVE. CALL LIGHT KEPT WITHIN EASY REACH. ASSISTED TO THE BATHROOM WITH WALKER. PT WANTS TO KNOW IF SHES HAVING A DIALYSIS TODAY INFORMED THAT MD WILL COME TODAY AND WILL WAIT FOR THE ORDER. CALL LIGHT KEPT [place] EASY REACH. WILL ENDORSED CONTINUITY OF CARE TO AM NURSE.
[2016-07-03 07:49] LABS: BASOPHILS # (AUTO) 0.1 /CMM (0.0-0.2); BASOPHILS % (AUTO) 0.5 % (0.0-2.0); EOSINOPHILS # (AUTO) 0.4 /CMM (0.0-0.7); EOSINOPHILS % (AUTO) 3.7 % (0.0-6.0); HEMATOCRIT 32 % (33-45); HEMOGLOBIN 10.6 g/dL (11.5-14.8); LYMPHOCYTES # (AUTO) 2.2 /CMM (0.8-4.8); LYMPHOCYTES % (AUTO) 19.4 % (20.0-44.0); MEAN CORPUSCULAR HEMOGLOBIN 33 PG (26.0-33.0); MEAN CORPUSCULAR HGB CONC 33 g/dl (31.0-36.0); MEAN CORPUSCULAR VOLUME 99 fL (82-100); MONOCYTES # (AUTO) 1.5 /CMM (0.1-1.30); MONOCYTES % (AUTO) 13.5 % (2.0-12.0); NEUTROPHILS # (AUTO) 7.1 /CMM (1.8-8.9); NEUTROPHILS % (AUTO) 62.9 % (43.0-81.0); PLATELET COUNT (AUTO) 372 /CMM (150-450); RDW COEFFICIENT OF VARIATION 15.3 (11.5-15.0); RED BLOOD CELL COUNT(AUTO) 3.25 MIL/uL (4.0-5.2); WHITE BLOOD COUNT (AUTO) 11.2 K/uL (4.3-11.0)
--- NOTE | 2016-07-03 07:50 | NUR ---
MS RN NOTES CALLED AND SPOKE TO TIFFANIE ELECTRIC RAZOR ASSEMBLER. HE STATES THAT THE PATIENT IS ON THE DIALYSIS LIST FOR TODAY AND TO HOLD ALL BP MEDS UNTIL AFTER DIALYSIS. WILL HOLD BP MEDS.
[2016-07-03 08:00] VITALS: BP 109/48
[2016-07-03 08:09] LABS: CALCIUM, SERUM 8.7 mg/dL (8.5-10.1); CREATININE 6.9 mg/dL (0.6-1.3); MAGNESIUM 2.4 mg/dL (1.8-2.4); PHOSPHORUS 3.7 mg/dL (2.5-4.9); POTASSIUM 5.3 mmol/L (3.5-5.1)
[2016-07-03] MEDS: PANTOPRAZOLE 40 MG VIAL IV SCH (08:23)
[2016-07-03] MEDS: MONTELUKAST SODIUM (10MG) 10 MG TABLET PO SCH (08:23)
[2016-07-03] MEDS: SYMBICORT INH SCH ×2 (08:23→17:20)
[2016-07-03] MEDS: FUROSEMIDE 40 MG TABLET PO SCH (08:23)
[2016-07-03] MEDS: hydrALAZINE HCL 50 MG TABLET PO SCH ×3 (08:24→17:00)
[2016-07-03] MEDS: DOCUSATE SODIUM 100 MG CAPSULE PO SCH (08:24)
[2016-07-03] MEDS: ATORVASTATIN 40 MG TABLET PO SCH (08:24)
[2016-07-03] MEDS: glipiZIDE 10 MG TABLET PO SCH ×3 (08:25→17:18)
[2016-07-03] MEDS: CARVEDILOL 12.5 MG TABLET PO SCH ×2 (08:25→21:30)
[2016-07-03] MEDS: METOCLOPRAMIDE HCL 10 MG TABLET PO SCH (08:25)
[2016-07-03] MEDS: LOSARTAN POTASSIUM 50 MG TABLET PO SCH ×2 (08:26→17:00)
[2016-07-03] MEDS: AMLODIPINE BESYLATE 5 MG TABLET PO SCH (08:26)
[2016-07-03] MEDS: POVIDONE-IODINE OINT 28.4 GM TUBE TP SCH ×2 (08:27→17:20)
--- NOTE | 2016-07-03 11:29 | NUR ---
MS RN NOTES PATIENT BLOOD SUGAR IS 409. CALLED [facility] TO INFORM GURINDER ROSA. AWAITING RETURN CALL. WILL ADMINISTER THE 20 UNITS PER SCALE.
--- NOTE | 2016-07-03 12:33 | NUR ---
MS RN NOTES PATIENT BLOOD SUGAR IS NOW 391. INFORMED GURINDER ROSA WHO ORDERED ANOTHER 15U OF REGULAR INSULIN FOR THE PATIENT. WILL CARRY OUT ORDERS.
[2016-07-03 16:00] VITALS: BP 100/56
[2016-07-03] MEDS: ACETAMINOPHEN 325 MG TABLET PO PRN (16:04)
[2016-07-03] MEDS ORDERED: IV SET PRIMARY PUMP SET 1 EA INFUS.SET MC ONE (17:05)
[2016-07-03] MEDS ORDERED: IV NS 0.9% 250 ML IV ONE (17:05)
[2016-07-03] MEDS ORDERED: SECONDARY IV SET 1 EA INFUS.SET MC ONE (17:06)
--- NOTE | 2016-07-03 18:34 | NUR ---
MS RN CLOSING NOTES NO SIGNIFICANT CHANGES IN PATIENT CONDITION THROUGHOUT THE SHIFT. NO SOB OR DISTRESS NOTED AT THIS TIME. PATIENT REPORTS TOLERABLE PAIN. BED IN A LOW POSITION, CALL LIGHT WITHIN PATIENT REACH. WILL ENDORSE FOR TAWNY.
--- NOTE | 2016-07-03 19:10 | NUR ---
RN NOTES RECEIVED PT ON THE TOILET ASSISTED TO GETTING UP TO THE TOILET. NO COMPLAIN OF PAIN. MAURICE CUTE RESP DISTRESS ON ROOM AIR. SATING 98%. AOX 3 ABLE TO MAKE KNOWN NEEDS. IV SITE ON RFA G 22 REMAINED INTACT AND PATENT LEFT ARM AV SHUNT REVISION INTACT AND CLEANED USED FOR DIALYSIS DRESSING CLEANED. KEPT PT CLEAN AND DRY. PT AMBULATE WITH WALKER. BACK TO BED. CALL LIGHT KEPT WITHIN EASY REACH. WILL CONTINUE TO MONITOR.
[2016-07-03 20:00] VITALS: BP 133/44
[2016-07-03] MEDS: *INSULIN REGULAR(HUMULIN R)HUM 100 UNIT/ML VIAL SQ PRN (21:37)
[2016-07-04] MEDS: ZOLPIDEM TARTRATE 5 MG TABLET PO PRN (01:39)
[2016-07-04] MEDS: oxyCODONE/APAP (5/325 MG) 1 UDTAB TABLET PO PRN ×2 (01:45→06:05)
[2016-07-04] MEDS: ACETAMINOPHEN 325 MG TABLET PO PRN (03:50)
[2016-07-04 04:00] VITALS: BP 126/68
[2016-07-04] MEDS: BLOOD SUGAR DIAGNOSTIC 1 EACH STRIP IN SCH ×2 (06:43→11:53)
[2016-07-04] MEDS: INSULIN REGULAR, HUMAN 100 UNIT/ML 3 ML VIAL SQ PRN (06:45)
--- NOTE | 2016-07-04 06:55 | NUR ---
RN NOTES PT IN STABLE CONDITION. NO SIGNIFICANT CHANGES SHOWS EXCEPT PAIN ON HER LEFT LATERAL THIGH. AFEBRILE. ALL NEEDS ATTENDED. NO ASE FROM ATB. CALL LIGHT KEPT WITHIN EASY REACH. TX DONE ORDERED. ASSISTED TO STAND FROM TOILET DURING BLADDER. KEPT CLEAN AND DRY WILL ENDORSED CONTINUITY OF CARE TO AM NURSE
[2016-07-04 07:02] LABS: CALCIUM, SERUM 8.5 mg/dL (8.5-10.1); CREATININE 4.8 mg/dL (0.6-1.3); POTASSIUM 3.9 mmol/L (3.5-5.1)
[2016-07-04 08:00] VITALS: BP 104/57
[2016-07-04] MEDS: hydrALAZINE HCL 50 MG TABLET PO SCH ×2 (08:28→12:14)
[2016-07-04] MEDS: SYMBICORT INH SCH (08:29)
[2016-07-04] MEDS: glipiZIDE 10 MG TABLET PO SCH ×2 (08:29→12:05)
[2016-07-04] MEDS: ATORVASTATIN 40 MG TABLET PO SCH (08:29)
[2016-07-04] MEDS: MONTELUKAST SODIUM (10MG) 10 MG TABLET PO SCH (08:30)
[2016-07-04] MEDS: CARVEDILOL 12.5 MG TABLET PO SCH (08:30)
[2016-07-04] MEDS: DOCUSATE SODIUM 100 MG CAPSULE PO SCH (08:30)
[2016-07-04] MEDS: FUROSEMIDE 40 MG TABLET PO SCH (08:30)
[2016-07-04] MEDS: LOSARTAN POTASSIUM 50 MG TABLET PO SCH (08:30)
[2016-07-04] MEDS: AMLODIPINE BESYLATE 5 MG TABLET PO SCH (08:30)
[2016-07-04] MEDS: METOCLOPRAMIDE HCL 10 MG TABLET PO SCH (08:31)
[2016-07-04] MEDS: PANTOPRAZOLE 40 MG VIAL IV SCH (08:31)
[2016-07-04] MEDS: POVIDONE-IODINE OINT 28.4 GM TUBE TP SCH (08:32)
--- NOTE | 2016-07-04 09:00 | NUR ---
MS1/RN AM SHIFT INITIAL NOTES Received pt awake sitting in bed, pt a/o x 4, pleasant, denies pain or any acute symptoms at this time. No acute change of condition noted. on room air saturating @ 96%, IV site flushed, patent no s/s of infection, SL. Cellulitis swelling is less. Pt refused scheduled Hydralazine, other medications taken. Pt is expected to discharge today. Pt is comfortable at this time. CL within reached and safety maintained. On going monitoring. Addendum: 07/04/16 at 1000 by JENNIFER COLEMAN RN ADDENDUM: Pt's AV shunt is positive of thrill and bruit.
[2016-07-04] MEDS ORDERED: SULF1TAB48 PO (09:52)
[2016-07-04] MEDS ORDERED: INSU100I19 SQ (11:16)
[2016-07-04] MEDS: *INSULIN REGULAR(HUMULIN R)HUM 100 UNIT/ML VIAL SQ PRN (12:07)
[2016-07-04 12:14] VITALS: BP 96/42
[2016-07-04] MEDS: IPRATROPIUM NEB FS 0.5 MG/2.5 ML AMPUL.NEB NEB PRN (12:55)
[2016-07-04] MEDS: ALBUTEROL FS 2.5 MG/0.5 ML VIAL.NEB NEB PRN (12:55)
--- NOTE | 2016-07-04 13:25 | NUR ---
MS1/AGRICULTURAL EQUIPMENT OPERATOR HOME Discharge instructions given to pt, verbalized understanding. Discharge documents, including prescription given to pt. Personal belongings returned to pt, inventory log signed off. Pt received breathing before D/C. IV site removed, pressure dressing applied, no s/s of infection. ID band removed. Pt left MS1 unit via wheelchair in stable condition, accompanied by myself to an awaiting private car, driven by pt's daughter.
[2016-07-04] MEDS ORDERED: INSULIN DETEMIR 100 UNIT/ML CARTRIDGE SQ SCH (22:00)
== END 2016-07-04 13:22 | disposition home or self-care (01) | DRG 173 ==
LOC: ER 19:53 → TELE1 21:51 → MEDSG1 06-28 10:09
PROVIDERS: ADMIT Family Medicine; ATTEND Family Medicine
PROC: 5A1D60Z (ICD-10-PCS; principal; 2016-06-28)
PROC: 05C80ZZ Extirpation of Matter from Left Axillary Vein, Open Approach (ICD-10-PCS; 2016-06-30)
PROC: 05WY0JZ Revision of Synthetic Substitute in Upper Vein, Open Approach (ICD-10-PCS; 2016-06-30)
DX: T82.510A Breakdown (mechanical) of surgically created arteriovenous fistula, initial encounter (principal); E43 Unspecified severe protein-calorie malnutrition; G92 Toxic encephalopathy; I50.33 Acute on chronic diastolic (congestive) heart failure; D68.9 Coagulation defect, unspecified; N18.6 End stage renal disease; E11.22 Type 2 diabetes mellitus with diabetic chronic kidney disease; I13.2 Hypertensive heart and chronic kidney disease with heart failure and with stage 5 chronic kidney disease, or end stage renal disease; L03.116 Cellulitis of left lower limb; Z99.2 Dependence on renal dialysis; E87.1 Hypo-osmolality and hyponatremia; E78.5 Hyperlipidemia, unspecified; J44.9 Chronic obstructive pulmonary disease, unspecified; E11.65 Type 2 diabetes mellitus with hyperglycemia; F17.210 Nicotine dependence, cigarettes, uncomplicated; R11.2 Nausea with vomiting, unspecified; E83.52 Hypercalcemia; Y71.2 Prosthetic and other implants, materials and accessory cardiovascular devices associated with adverse incidents; D63.8 Anemia in other chronic diseases classified elsewhere; D69.2 Other nonthrombocytopenic purpura; I87.2 Venous insufficiency (chronic) (peripheral); Z79.84 Long term (current) use of oral hypoglycemic drugs; Z68.29 Body mass index [BMI] 29.0-29.9, adult
CPT/HCPCS: 36415; 70450-TC; 71010-TC; 76700-TC; 80048-TC; 80053-TC; 80076-TC; 80202-TC; 82140-TC; 82962-TC; 83605-TC; 83615-TC; 83735-TC; 84100-TC; 84439-TC; 84443-TC; 84484-TC; 85025-TC; 85730-TC; 86850-TC; 87040-TC; 87081-TC; 88304-TC; 88305-TC; 90935-TC; 93307-TC; 93971-TC; 94799-TC; 97001-TC; 97116-TC; 97530-TC; A4216; A4606; A6209; A6402; A6403; C1757; C1768; C1769; C9113; J1644; J1815; J2250; J2704; J3010; J3370; J3490; J7050; J7060; J8597; P9047; Z7610

== ENCOUNTER 2016-07-11 16:54 | Inpatient (IN) | payer OTHER ==
[~2016-07-11] VITALS: Ht 165.1 cm; Wt 83.9 kg
[~2016-07-11 16:54] MED LIST changes: -ATOR40TA GT; +ATOR40TA PO; +INSU100I19 SQ; +SULF1TAB48 PO
--- NOTE | 2016-07-11 17:05 | NUR ---
PT BBRA FROM HOME: LOW BP, MISSED DIALYSIS. BS FIELD 64. PT HAS RAC #18 IV ACCES ENTERPRISE BUSINESS ARCHITECT. DENIES ANY SOB. PLACED ON MONITOR. BP LOW MD MADE AWARE. AWAITING MD ORDER. PLACED ON SAFETY PRECAUTION AND COMFORTABLE. GIVEN APPLE JUICE.
--- NOTE | 2016-07-11 17:05 | NUR ---
LEFT LATERAL THIGH REDNESS AND RIGHT LATERAL THIGH WOUND COVER IN DRY DRESSING.
[2016-07-11] MEDS ORDERED: IV SET PRIMARY 1 EA INFUS.SET MC ONE (17:25)
[2016-07-11] MEDS ORDERED: IV NS 0.9% 500 ML IV ONE (17:25)
[2016-07-11] MEDS ORDERED: VANCOMYCIN 1 GM in IV D5W 250 ML IV ONE (17:30)
[2016-07-11] MEDS ORDERED: IV NS 0.9% 500 ML BAG IV ONE (17:30)
[2016-07-11 17:34] LABS: BASOPHILS # (AUTO) 0.1 /CMM (0.0-0.2); BASOPHILS % (AUTO) 0.6 % (0.0-2.0); EOSINOPHILS # (AUTO) 0.5 /CMM (0.0-0.7); EOSINOPHILS % (AUTO) 3.6 % (0.0-6.0); HEMATOCRIT 28 % (33-45); HEMOGLOBIN 9.2 g/dL (11.5-14.8); LYMPHOCYTES % (AUTO) 15.2 % (20.0-44.0); MEAN CORPUSCULAR HEMOGLOBIN 32 PG (26.0-33.0); MEAN CORPUSCULAR HGB CONC 33 g/dl (31.0-36.0); MEAN CORPUSCULAR VOLUME 99 fL (82-100); MONOCYTES % (AUTO) 7.7 % (2.0-12.0); NEUTROPHILS # (AUTO) 9.8 /CMM (1.8-8.9); NEUTROPHILS % (AUTO) 72.9 % (43.0-81.0); PLATELET COUNT (AUTO) 669 /CMM (150-450); RDW COEFFICIENT OF VARIATION 14.6 (11.5-15.0); RED BLOOD CELL COUNT(AUTO) 2.86 MIL/uL (4.0-5.2); WHITE BLOOD COUNT (AUTO) 13.4 K/uL (4.3-11.0)
[2016-07-11] MEDS ORDERED: IV SET PRIMARY PUMP SET 1 EA INFUS.SET MC ONE ×2 (17:38→23:17)
--- NOTE | 2016-07-11 17:45 | NUR ---
BLOOD SAMPLE COLLECTED BY LAB
[2016-07-11 17:50] LABS: ALBUMIN 2.5 g/dL (3.4-5.0); BILIRUBIN,DIRECT 0.1 mg/dL (0.0-0.2); BILIRUBIN,TOTAL 1.3 mg/dL (0.2-1.0); CALCIUM, SERUM 10.1 mg/dL (8.5-10.1); CREATININE 6.7 mg/dL (0.6-1.3); POTASSIUM 5.9 mmol/L (3.5-5.1); TOTAL PROTEIN, SERUM 6.2 g/dL (6.4-8.2)
[2016-07-11 17:52] LABS: TROPONIN I 0.048 ng/mL (0.00-0.056)
[2016-07-11 17:55] LABS: PROTHROMBIN TIME 70.8 SECS (9.5-12.7)
[2016-07-11 17:58] LABS: LACTIC ACID 1.1 mmol/L (0.4-2.0)
[2016-07-11 18:14] LABS: INR 6.19 (0.87-1.13)
[2016-07-11] MEDS ORDERED: CINA30TA PO (18:22)
[2016-07-11] MEDS ORDERED: INSU100I19 SQ (18:22)
[2016-07-11] MEDS ORDERED: METO25TA6 PO (18:22)
[2016-07-11] MEDS ORDERED: ASPI81TA2 PO (18:22)
[2016-07-11] MEDS ORDERED: DILT30TA2 PO (18:22)
[2016-07-11] MEDS ORDERED: BENZ-13 PO (18:22)
[2016-07-11] MEDS ORDERED: PYRI50TA93 PO (18:22)
[2016-07-11] MEDS ORDERED: ZOLP5TAB2 PO (18:22)
[2016-07-11] MEDS ORDERED: APIX5TAB PO (18:24)
--- NOTE | 2016-07-11 18:30 | NUR ---
NW=[phone] AWARE
--- NOTE | 2016-07-11 19:16 | NUR ---
GAVE REPORT TO JOSH SIMPSON.
--- NOTE | 2016-07-11 19:16 | NUR ---
PT APPEARS TO BE RESTING COMFORTABLY. PT'S BP IS STILL LOW. IVF INFUSING. PT IS AA&O X4. RESP EVEN AND UNLABORED. WILL CONTINUE TO MONITOR THE PT.
--- NOTE | 2016-07-11 19:35 | NUR ---
PT WAS C/O WOUND ON LLE CALF. AREA COVERED WITH XEROFORM AND KERLEX. PT IS ON THE MONITOR AND CONTINUOUS PULSE OX.
[2016-07-11 20:00] VITALS: BP 96/54
--- NOTE | 2016-07-11 20:02 | NUR ---
PT ASSIGNED TO 323-2
--- NOTE | 2016-07-11 20:02 | NUR ---
CALLING REPORT TO ADRIANNE SEARS.
--- NOTE | 2016-07-11 20:10 | NUR ---
REPORT GIVEN TO ADRIANNE FRAIRE
--- NOTE | 2016-07-11 20:45 | NUR ---
TELE/RN NOTES RECEIVED NEW ADMIT PATIENT IS A 61YO FEMALE ALERT, ORIENTEDX4 ABLE TO VERBALIZE NEEDS. COOPERATIVE TO CARE. WHO WAS ADMITTED FROM ER DUE TO GENERALIZED WEAKNESS WHO IS SCHEDULED TO HAVE DIALYSIS BUT WENT TO ER AND HAD LOW BLOOD PRESSURE,BS AT 64. POTASSIUM5.9 HIGH,ADMITED TO TELE.WITH LUE SHUNT. AMBULATORY W/ ASSISTANCE/WALKER. ON RENAL DIET. IV ON LEFT HAND GAUGE.ROOM ORIENTATION. SKIN BODY ASSESMENT WITH LEFT LEG ULCER, BLE DISCOLORATION AND LEFT THIGH SKIN TEAR,.WILL F/O MD ORDER.CALL LIGHTS WITHIN REACH WILL CONTINUE TO MONITOR.
[2016-07-11] MEDS ORDERED: BENZONATATE 100 MG CAPSULE PO PRN (22:00)
[2016-07-11 22:27] VITALS: BP 149/77
[2016-07-11] MEDS ORDERED: oxyCODONE/APAP (5/325 MG) 1 UDTAB TABLET ONE (23:00)
[2016-07-11] MEDS ORDERED: SECONDARY IV SET 1 EA INFUS.SET MC ONE (23:01)
[2016-07-11] MEDS ORDERED: NICOTINE PATCH (21MG) 21 MG PATCH.TD24 TD ONE (23:01)
[2016-07-11] MEDS ORDERED: ZOLPIDEM TARTRATE 5 MG TABLET ONE (23:01)
[2016-07-11] MEDS ORDERED: CEFTRIAXONE 1 G VIAL ONE (23:01)
[2016-07-11] MEDS ORDERED: IV D5W 50 ML IV ONE (23:02)
[2016-07-11] MEDS: ZOLPIDEM TARTRATE 5 MG TABLET PO SCH (23:10)
[2016-07-11] MEDS: oxyCODONE/APAP (5/325 MG) 1 UDTAB TABLET PO PRN (23:12)
[2016-07-11] MEDS ORDERED: IV NS 0.9% 250 ML IV ONE (23:20)
[2016-07-11] MEDS: NICOTINE PATCH (21MG) 21 MG PATCH.TD24 TD SCH (23:23)
[2016-07-12] VITALS (8 sets, daily range): BP systolic 80–124; BP diastolic 49–73
--- NOTE | 2016-07-12 06:27 | NUR ---
TELE/RN CLOSING NOTES PATIENT AWAKE, ALERTX3. NO S/S OF SOB OR DISTRESS. VERBALIZED AND REMOVED NASAL CANULA AT THIS TIME . INFORMED ABOUT AM MD ROUNDS AND ON TELE AFLUTTER IN 80'S INFORMED THAT MIGHT BE NPO TILL FURTHER SEEN BY CARDIO MD FOR FURTHER TEST THAT MAY BE REQUIRED,. WILL CONTINUE TO MONITOR.
--- NOTE | 2016-07-12 07:30 | NUR ---
SHEET METAL WELDER NOTES RECEIVED PATIENT AOX3, BREATHING EVEN AND NON LABORED, DENIES ANY PAIN AT THIS TIME. NOTED WITH IV ROCEPHIN HANGING GIVEN AT 2330HRS, WITH PIV HL #24 ON HER RH INTACT AND PATENT. CALL LIGHT WITHIN REACH, BED IN LOW POSITION FOR SAFETY MEASURES. WILL CONTINUE TO MONITOR.
[2016-07-12 08:16] LABS: INR 3.68 (0.87-1.13); PROTHROMBIN TIME 42.8 SECS (9.5-12.7)
--- NOTE | 2016-07-12 09:43 | NUR ---
ADOBE BALL MIXER NOTES S/B MEN'S CUSTOM HAIR PIECE CONSULTANT PARISH AND DR. ИВАН VEGA, WITH NEW ORDERS MADE AND CARRIED OUT.
[2016-07-12] MEDS ORDERED: DEXTROSE 50%-WATER 50 ML DISP.SYRIN IV PRN (10:00)
[2016-07-12] MEDS ORDERED: FEE PK DOSING 1 MIN EA MC ONE (10:13)
[2016-07-12] MEDS ORDERED: VANCOMYCIN 500 MG in IV D5W 100 ML IV PRN (10:30)
[2016-07-12] MEDS: CINACALCET HCL 30 MG TABLET PO SCH (10:39)
[2016-07-12] MEDS: NICOTINE PATCH (21MG) 21 MG PATCH.TD24 TD SCH (10:39)
[2016-07-12] MEDS: PANTOPRAZOLE 40 MG TABLET.DR PO SCH (10:40)
[2016-07-12] MEDS: ATORVASTATIN 40 MG TABLET PO SCH (10:40)
[2016-07-12] MEDS: MONTELUKAST SODIUM (10MG) 10 MG TABLET PO SCH (10:40)
[2016-07-12] MEDS: PYRIDOXINE HCL 50 MG TABLET PO SCH (10:40)
[2016-07-12] MEDS: ASPIRIN 81 MG TAB.CHEW PO SCH (10:40)
[2016-07-12] MEDS: DILTIAZEM HCL 30 MG TABLET PO SCH ×4 (10:41→20:39)
[2016-07-12] MEDS: LOSARTAN POTASSIUM 50 MG TABLET PO SCH ×2 (10:41→17:00)
[2016-07-12] MEDS: FUROSEMIDE 80 MG TABLET PO SCH (10:41)
[2016-07-12] MEDS: METOPROLOL TARTRATE 25 MG TABLET PO SCH ×2 (10:41→17:00)
[2016-07-12] MEDS: AMLODIPINE BESYLATE 5 MG TABLET PO SCH (10:43)
--- NOTE | 2016-07-12 11:00 | NUR ---
FLOATING OPERATOR NOTES PATIENT'S TEMP AXILLA 94.8 F AND RECTALLY 95.5F. MONOGRAM AND LETTER PASTER PARISH MADE AWARE WITH NO NEW ORDERS. WILL CONTINUE TO MONITOR.
[2016-07-12] MEDS: BLOOD SUGAR DIAGNOSTIC 1 EACH STRIP IN SCH ×3 (12:23→21:35)
[2016-07-12] MEDS: FLUTICASONE/SALMETEROL DISKUS IH SCH ×2 (12:24→17:36)
[2016-07-12] MEDS: INSULIN REGULAR, HUMAN 100 UNIT/ML 3 ML VIAL SQ PRN ×3 (12:24→21:39)
[2016-07-12 12:27] LABS: INR 3.49 (0.87-1.13); PROTHROMBIN TIME 40.5 SECS (9.5-12.7)
[2016-07-12] MEDS ORDERED: EPOETIN ALFA (10,000 UNIT) 10,000 UNIT/ML VIAL SQ SCH (13:00)
[2016-07-12] MEDS ORDERED: EPOETIN ALFA (10,000 UNIT) 10,000 UNIT/ML VIAL SQ ONE (14:30)
--- NOTE | 2016-07-12 14:40 | NUR ---
JAVA CONSULTANT NOTES PATIENT STARTED ON HEMODIALYSIS AT BEDSIDE ORDERED. VS BP 97/33, HR 89, RR 20. PYROTECHNICS PRESS TENDER AT BEDSIDE FOR MONITORING
--- NOTE | 2016-07-12 17:00 | NUR ---
MS RN NOTES HD FINISHED WITH VS BP 105/64, OH 74, RR 20, TEMP 97.4, WITH AN OUTPUT OF 1.6L. WILL CONTINUE TO MONITOR.
[2016-07-12] MEDS: INSULIN DETEMIR 100 UNIT/ML CARTRIDGE SQ SCH (17:55)
--- NOTE | 2016-07-12 18:00 | NUR ---
MS RN NOTES CONSENT OBTAINED FOR DEBRIDEMENT OF LEFT LATERAL THIGH NECROTIC WOUND ON THURSDAY.
--- NOTE | 2016-07-12 19:38 | NUR ---
MS RN NOTES ENDORSED TO INCOMING SHIFT FOR CONTINUITY OF CARE.
--- NOTE | 2016-07-12 20:00 | NUR ---
RECEIVED PATIENT IN BED, ALERT AND ORIENTED X4, CALM, NO SOB, NO RESPIRATORY DISTRESS, TOLERATING ROOM AIR, NO COMPLAIN OF PAIN AT THIS TIME. LEFT UPPER ARM AV SHUNT NOTED BRUIT AND THRILL, DRESSING INTACT, NO BLEEDING. S/P HD TODAY. BP IS RUNNING LOW, HAS TO RETAKE X3. LEFT HAND SALINE LOCK HAS BLEEDING, CHANGED EXTENSION, ABLE TO FLUSH. ABLE TO AMBULATE WITH WALKER. NEEDS ATTENDED, CALL LIGHT WITHIN REACH.
--- NOTE | 2016-07-12 20:40 | NUR ---
CARDIZEM HELD BP RUNS CONSTANTLY LOW, LATEST BP 107/73 HR 87, PATIENT IS S/P HD WITH 1.6 LITER OUTPUT.
[2016-07-12] MEDS: oxyCODONE/APAP (5/325 MG) 1 UDTAB TABLET PO PRN (20:44)
--- NOTE | 2016-07-12 21:25 | NUR ---
PATIENT WALKING IN THE HALLWAY WITH WALKER, WANTING TO GO HOME. EXPLAINED TO PATIENT CONDITION IS UNSTABLE SECONDARY TO LOW BP AND TO CONTINUE IV ABX. PATIENT ASSISTED TO BED. WILL CONTINUE TO MONITOR.
[2016-07-12] MEDS: CEFTRIAXONE 1 G in IV D5W 50 ML IV SCH (21:34)
--- NOTE | 2016-07-12 21:47 | NUR ---
BG 174 M G/DL GIVEN INSULINE 3 UNITS. ON ACCUCHECK MACHINE, DID NOT ABLE TO PUT COMMENT, ACCIDENTALLY PRESSED ACCEPT BUTTON.
[2016-07-12] MEDS: ZOLPIDEM TARTRATE 5 MG TABLET PO SCH (22:02)
[2016-07-13] MEDS: BLOOD SUGAR DIAGNOSTIC 1 EACH STRIP IN SCH ×4 (06:30→22:30)
[2016-07-13] MEDS: INSULIN REGULAR, HUMAN 100 UNIT/ML 3 ML VIAL SQ PRN ×4 (06:38→22:33)
--- NOTE | 2016-07-13 06:47 | NUR ---
PATIENT IS AWAKE, UP ON THE CHAIR, NO SOB, WITH EPISODES OF RESTLESSNESS DURING SHIFT, PREFERS TO SIT ON THE EDGE OF THE BED, FALL PRECAUTION, AMBULATES WITH WALKER WITH SUPERVISION, REMOVED DRESSING TO LEFT UPPER ARM AV SHUNG, NO BLEEDING, ALL DUE MEDICATIONS GIVEN, CALL LIGHT WITHIN REACH.
--- NOTE | 2016-07-13 07:10 | NUR ---
MS RN NOTES RECEIVED PATIENT AWAKE, APPEARS SLEEPY, SITTING IN THE CHAIR. BREATHING EVEN AND NON LABORED. IV IN LEFT HAND G24. BOTH LOWE EXT DRESSING IN PLACE. ATTEMPTED TO ASSIST PATIENT TO GO BACK TO BED, PATIENT REFUSED AND STATED SHE'S COMFORTABLE SITTING IN THE CHAIR FOR NOW. WILL CONT TO MONITOR PATIENT, FALL PRECAUTION OBSERVED.
[2016-07-13 08:00] VITALS: BP 92/66
[2016-07-13 09:17] LABS: BASOPHILS # (AUTO) 0.1 /CMM (0.0-0.2); BASOPHILS % (AUTO) 0.6 % (0.0-2.0); EOSINOPHILS # (AUTO) 0.3 /CMM (0.0-0.7); EOSINOPHILS % (AUTO) 2.1 % (0.0-6.0); HEMATOCRIT 28 % (33-45); HEMOGLOBIN 9.2 g/dL (11.5-14.8); LYMPHOCYTES # (AUTO) 1.9 /CMM (0.8-4.8); MEAN CORPUSCULAR HEMOGLOBIN 33 PG (26.0-33.0); MEAN CORPUSCULAR HGB CONC 33 g/dl (31.0-36.0); MEAN CORPUSCULAR VOLUME 100 fL (82-100); MONOCYTES # (AUTO) 0.8 /CMM (0.1-1.30); MONOCYTES % (AUTO) 6.3 % (2.0-12.0); NEUTROPHILS # (AUTO) 9.5 /CMM (1.8-8.9); PLATELET COUNT (AUTO) 661 /CMM (150-450); RDW COEFFICIENT OF VARIATION 15.4 (11.5-15.0); WHITE BLOOD COUNT (AUTO) 12.4 K/uL (4.3-11.0)
[2016-07-13] MEDS: NICOTINE PATCH (21MG) 21 MG PATCH.TD24 TD SCH (09:52)
[2016-07-13] MEDS: FUROSEMIDE 80 MG TABLET PO SCH (09:52)
[2016-07-13] MEDS: PYRIDOXINE HCL 50 MG TABLET PO SCH (09:52)
[2016-07-13] MEDS: ASPIRIN 81 MG TAB.CHEW PO SCH (09:52)
[2016-07-13] MEDS: ATORVASTATIN 40 MG TABLET PO SCH (09:52)
[2016-07-13] MEDS: CINACALCET HCL 30 MG TABLET PO SCH (09:52)
[2016-07-13] MEDS: MONTELUKAST SODIUM (10MG) 10 MG TABLET PO SCH (09:52)
[2016-07-13 09:58] LABS: CALCIUM, SERUM 9.7 mg/dL (8.5-10.1); CREATININE 6.7 mg/dL (0.6-1.3); MAGNESIUM 3.1 mg/dL (1.8-2.4); PHOSPHORUS 4.2 mg/dL (2.5-4.9)
[2016-07-13] MEDS: METOPROLOL TARTRATE 25 MG TABLET PO SCH ×2 (09:58→17:55)
[2016-07-13] MEDS: LOSARTAN POTASSIUM 50 MG TABLET PO SCH ×2 (09:59→17:56)
[2016-07-13] MEDS: AMLODIPINE BESYLATE 5 MG TABLET PO SCH (09:59)
[2016-07-13] MEDS: DILTIAZEM HCL 30 MG TABLET PO SCH ×4 (10:00→21:00)
[2016-07-13] MEDS: FLUTICASONE/SALMETEROL DISKUS IH SCH ×2 (10:01→17:01)
[2016-07-13 10:03] LABS: POTASSIUM 6.3 mmol/L (3.5-5.1)
[2016-07-13] MEDS: PANTOPRAZOLE 40 MG TABLET.DR PO SCH (10:03)
[2016-07-13 10:30] VITALS: BP 121/71
[2016-07-13] MEDS ORDERED: SODIUM POLYSTYRENE SULFONATE 15 G/60 ML BOTTLE PO ONE (10:30)
--- NOTE | 2016-07-13 12:27 | NUR ---
BS 239MG/DL. GIVEN 4 UNITS INSULIN REGULAR SQ PER COVERAGE.
[2016-07-13] MEDS ORDERED: APIXABAN 5 MG TABLET PO SCH (13:30)
[2016-07-13 16:00] VITALS: BP_SYST 105; BP_SYST 107; BP_DIAS 58
[2016-07-13] MEDS ORDERED: APIXABAN 2.5 MG TABLET PO SCH (17:00)
--- NOTE | 2016-07-13 17:04 | NUR ---
BS 221MG/DL. GIVEN 4 UNITS INSULIN REGULAR SQ PER COVERAGE.
[2016-07-13] MEDS: LACTOBACILLUS RHAMNOSUS GG 1 EACH CAP.SPRINK PO SCH (17:48)
[2016-07-13 17:50] VITALS: BP 125/59
[2016-07-13] MEDS: APIXABAN 5 MG TABLET PO SCH (17:57)
--- NOTE | 2016-07-13 18:00 | NUR ---
PATIENT RECEIVED KEYEXALATE 30GM PO TODAY. NO BOWEL MOVEMENT AT THIS TIME. WILL ENDORSE TO CENTER DIRECTOR LEAD TEACHER RN.
[2016-07-13] MEDS: INSULIN DETEMIR 100 UNIT/ML CARTRIDGE SQ SCH (18:05)
--- NOTE | 2016-07-13 18:50 | NUR ---
MS RN CLOSING NOTES PATIENT IN BED, NOT IN DISTRESS. BLOOD SUGAR MONITORED. DRESSING CHANGED IN LEFT LEG AND LATERAL LEFT THIGH. NO C/O PAIN AT THIS TIME. LEFT UPPER AV SHUNT INTACT, NO BLEEDING NOTED. CALL LIGHT WITHIN REACH. HEMODIALYSIS AND LAB IN AM. WILL ENDORSE TO PEDODONTIST RN FOR CONTINUITY OF CARE.
[2016-07-13 19:00] VITALS: BP 104/59
--- NOTE | 2016-07-13 19:30 | NUR ---
MS RN INITIAL NOTE RECEIVED PT AWAKE AND ALERT, ORIENTED X3 NO COMPLAINT OF PAIN OR RESPIRATORY DISTRESS, PT'S POTASSIUM IS 6.3 KAYEXALATE 30G GIVEN AT NOON, PER AM NURSE PT HASN'T HAD A BM, ELANA LOCKHART MADE AWARE, INSTRUCTIONS RECEIVED TO CONTINUE MONITOR WITH NO FURTHER NEW ORDER, PT IS CLEAN/DRY AND COMFORTABLE, SAFETY MEASURES WILL BE MAINTAINED AT ALL TIMES, NEEDS WILL BE ATTENDED DURING HOURLY ROUNDS AND NEEDED.
[2016-07-13 20:00] VITALS: BP 104/59
[2016-07-13] MEDS: ZOLPIDEM TARTRATE 5 MG TABLET PO SCH (22:00)
[2016-07-13] MEDS: METOCLOPRAMIDE HCL 10 MG TABLET PO PRN (22:42)
[2016-07-13] MEDS: CEFTRIAXONE 1 G in IV D5W 50 ML IV SCH (22:59)
[2016-07-14 07:00] LABS: BASOPHILS % (AUTO) 0.3 % (0.0-2.0); EOSINOPHILS % (AUTO) 2.5 % (0.0-6.0); HEMATOCRIT 25 % (33-45); MEAN CORPUSCULAR HEMOGLOBIN 32 PG (26.0-33.0); MEAN CORPUSCULAR HGB CONC 32 g/dl (31.0-36.0); MEAN CORPUSCULAR VOLUME 100 fL (82-100); MONOCYTES % (AUTO) 9.7 % (2.0-12.0); NEUTROPHILS % (AUTO) 68.5 % (43.0-81.0); PLATELET COUNT (AUTO) 548 /CMM (150-450); RDW COEFFICIENT OF VARIATION 15.5 (11.5-15.0); RED BLOOD CELL COUNT(AUTO) 2.51 MIL/uL (4.0-5.2); WHITE BLOOD COUNT (AUTO) 11.4 K/uL (4.3-11.0)
[2016-07-14 07:01] LABS: EOSINOPHILS # (AUTO) 0.3 /CMM (0.0-0.7); LYMPHOCYTES # (AUTO) 2.2 /CMM (0.8-4.8); MONOCYTES # (AUTO) 1.1 /CMM (0.1-1.30); NEUTROPHILS # (AUTO) 7.8 /CMM (1.8-8.9)
--- NOTE | 2016-07-14 07:03 | NUR ---
MS RN CLOSING NOTE PT REMAINED STABLE DURING MANUFACTURER'S SERVICE REPRESENTATIVE, NO SIGNIFICANT CHANGES IN CONDITION NOTED, CLEAN DRY AND COMFORTABLE, WILL ENDORSE TO INCOMING NURSE FOR TAWNY.
--- NOTE | 2016-07-14 07:10 | NUR ---
MS RN NOTES RECEIVED PATIENT IN BED, A/O X3. TOLERATING ROOM AIR, NO SOB NOTED. LEFT LEG DRESSING IN PLACE. NO C/O PAIN AT THIS TIME. CALL LIGHT WITHIN REACH. PER NIGHT RN, DEBRIDEMENT WOUND BY DR. ESTELLA PARISI, NO CONFIRM SCHEDULE TODAY IN THE OR. WILL F/U. WILL CONT TO MONITOR.
[2016-07-14 07:26] LABS: CALCIUM, SERUM 9.5 mg/dL (8.5-10.1); CREATININE 7.3 mg/dL (0.6-1.3); PHOSPHORUS 4.2 mg/dL (2.5-4.9); POTASSIUM 5.6 mmol/L (3.5-5.1)
[2016-07-14 08:00] VITALS: BP 100/58
--- NOTE | 2016-07-14 08:19 | NUR ---
CALLED SPOKE WITH DR. ESTELLA PARISI, PER MD PATIENT CAN HAVE FOOD. WOUND DEBRIDEMENT TO BE DONE AT BEDSIDE PER MD.
[2016-07-14] MEDS: BLOOD SUGAR DIAGNOSTIC 1 EACH STRIP IN SCH ×4 (08:21→21:34)
[2016-07-14] MEDS: INSULIN REGULAR, HUMAN 100 UNIT/ML 3 ML VIAL SQ PRN ×4 (08:23→21:36)
--- NOTE | 2016-07-14 08:23 | NUR ---
BS 202MG/DL. GIVEN 4 UNITS INSULIN REGULAR SQ PER COVERAGE.
[2016-07-14] MEDS: PANTOPRAZOLE 40 MG TABLET.DR PO SCH (08:26)
[2016-07-14] MEDS: PYRIDOXINE HCL 50 MG TABLET PO SCH (08:26)
[2016-07-14] MEDS: FUROSEMIDE 80 MG TABLET PO SCH (08:26)
[2016-07-14] MEDS: LACTOBACILLUS RHAMNOSUS GG 1 EACH CAP.SPRINK PO SCH ×2 (08:26→16:53)
[2016-07-14] MEDS: NICOTINE PATCH (21MG) 21 MG PATCH.TD24 TD SCH (08:26)
[2016-07-14] MEDS: ATORVASTATIN 40 MG TABLET PO SCH (08:27)
[2016-07-14] MEDS: CINACALCET HCL 30 MG TABLET PO SCH (08:27)
[2016-07-14] MEDS: MONTELUKAST SODIUM (10MG) 10 MG TABLET PO SCH (08:27)
[2016-07-14] MEDS: METOPROLOL TARTRATE 25 MG TABLET PO SCH ×2 (08:31→16:53)
[2016-07-14] MEDS: AMLODIPINE BESYLATE 5 MG TABLET PO SCH (08:32)
[2016-07-14] MEDS: FLUTICASONE/SALMETEROL DISKUS IH SCH ×2 (08:33→16:53)
[2016-07-14] MEDS: LOSARTAN POTASSIUM 50 MG TABLET PO SCH ×2 (08:33→16:53)
[2016-07-14] MEDS: ASPIRIN 81 MG TAB.CHEW PO SCH (09:00)
[2016-07-14] MEDS: APIXABAN 5 MG TABLET PO SCH ×2 (09:00→16:54)
[2016-07-14] MEDS: DILTIAZEM HCL 30 MG TABLET PO SCH ×4 (09:00→21:34)
--- NOTE | 2016-07-14 09:00 | NUR ---
PER NIGHT RN REPORT, ACCORDING TO THE PATIENT SHE HAS HEMORRHOID. PATIENT HAD BOWEL MOVEMENT LAST NIGHT AND WITH BLOOD IN THE STOOL. INFORMED TOURIST CAMP ATTENDANT-CELESTINO WITH NO NEW ORDERS AT THIS TIME.
--- NOTE | 2016-07-14 09:18 | NUR ---
WOUND CARE CONSULT: PATIENT SEEN AND SKIN ASSESSMENT DONE. HD PATIENT ALERT, ORIENTED, AMBULATES WITH WALKER, INDEPENDENT WITH BED MOBILITY, MEREDITH 19, CONTINENT. SEE TODAY'S SKIN ASSESSMENT IN PCS ALONG WITH RECOMMENDATIONS DISCUSSED WITH NURSING STAFF. IN AGREEMENT WITH PLAN OF CARE. Addendum: 07/14/16 at 0919 by JUANITO FUENTES WNDNU Amended: Links added.
--- NOTE | 2016-07-14 09:30 | NUR ---
STILL ELEVATED POTASSIUM LEVEL 5.6, PREVIOUSLY 6.3 FROM YESTERDAY. PER REPORT FROM NIGHT RN, PATIENT HAD ONE EPISODE OF BOWEL MOVEMENT LAST NIGHT. INFORMED SUPERVISOR FURNACE PROCESS-CELESTINO WITH NO NEW ORDERS AT THIS TIME.
--- NOTE | 2016-07-14 10:21 | NUR ---
PATIENT TO HAVE WOUND DEBRIDEMENT TODAY. ASPIRIN AND ELIQUIS- ANTICOAGULANTS NON ADMINISTERED.
[2016-07-14 10:25] VITALS: BP 103/59
[2016-07-14] MEDS: oxyCODONE/APAP (5/325 MG) 1 UDTAB TABLET PO PRN ×2 (11:05→20:09)
--- NOTE | 2016-07-14 11:49 | NUR ---
ELEVATED POTASSIUM LEVEL 5.[address] TROY WITH NO NEW ORDERS AT THIS TIME.
--- NOTE | 2016-07-14 11:55 | NUR ---
BS 287MG/DL. GIVEN 6 UNITS INSULIN REGULAR SQ PER COVERAGE.
--- NOTE | 2016-07-14 14:10 | NUR ---
PATIENT IS SEEN BY DR. ESTELLA PARISI TODAY, ORDERED TO PAINT LEFT THIGH WITH BETADINE AND COVER WITH ABD PAD BID. PER MD HE WILL PLACE ORDER FOR CT SCAN IN LEFT THIGH WOUND.
[2016-07-14] MEDS ORDERED: EPOETIN ALFA (10,000 UNIT) 10,000 UNIT/ML VIAL SQ ONE (15:00)
--- NOTE | 2016-07-14 15:35 | NUR ---
PT NEEDS NEW IV LINE, RN WILL CALL.
[2016-07-14] MEDS ORDERED: CT SWABBABLE VALVE TRANS SET 1 EA INFUS.SET MC ONE (15:39)
[2016-07-14] MEDS ORDERED: IV NS 0.9% 250 ML IV ONE (15:39)
[2016-07-14] MEDS ORDERED: IOHEXOL-300 100 ML VIAL IV ONE (15:39)
[2016-07-14 16:00] VITALS: BP 118/61
--- NOTE | 2016-07-14 17:27 | NUR ---
BS 187MG/DL. GIVEN 3 UNITS INSULIN REGULAR SQ PER COVERAGE.
[2016-07-14] MEDS: INSULIN DETEMIR 100 UNIT/ML CARTRIDGE SQ SCH (18:09)
--- NOTE | 2016-07-14 18:20 | NUR ---
CALLED GERMAN-DIALYSIS TREATMENT NURSE, PER [facility]ERMAN PATIENT WILL NOT DIALYSE TODAY INSTEAD TOMORROW AM, WILL CONFIRM WITH DR. TROY.
--- NOTE | 2016-07-14 18:24 | NUR ---
PATIENT RECEIVED IV CONTRAST TODAY FOR CT WITH CONTRAST LEFT LATERAL THIGH, INFORMED DR. SYDNI FRAIRE MADE AWARE, PER MD PATIENT TO HAVE DIALYSIS TREATMENT IN AM.
--- NOTE | 2016-07-14 18:49 | NUR ---
MS RN CLOSING NOTES PATIENT IN BED, A/O X3. WOUND DEBRIDEMENT NOT DONE TODAY, DR. ESTELLA PARISI TO REVIEW CT W/CONTRAST LLE, STILL PENDING. LEFT LAT THIGH NECROTIC WOUND PAINT WITH BETADINE AND COVER WITH ABD PAD. BLOOD SUGAR MONITORED. HD TREATMENT SCHEDULED IN AM PER AMET-RN, PATIENT MADE AWARE. HEMOGLOBIN 8.0, EPOGEN SQ GIVEN TODAY. NO C/O PAIN AT THIS TIME, NO SOB. CALL LIGHT WITHIN REACH. WILL ENDORSE TO CULTURE ROOM WORKER RN FOR CONTINUITY OF CARE.
--- NOTE | 2016-07-14 20:09 | NUR ---
FIELD INSURANCE SALES MANAGER/NOTES PAIN MGT. C/O LEFT LEG PAIN AFTER PATIENT AMBULATING TO THE BATHROOM. PAIN /10. PERCOCET GIVEN ORDERED. NO SIGNS OF ANY ACUTE DISTRESS NOTED. WILL RE-ASSESS PATIENT LATER. KEPT HER COMFORTABLE AT ALL TIMES. PLACE CALL LIGHT AT REACH.
[2016-07-14 20:39] VITALS: BP 103/65
--- NOTE | 2016-07-14 21:25 | NUR ---
MATERIAL PREPARATION WORKER/NOTES PAIN RE- ASSESSMENT CHECKED PT SHE'S AWAKE AND ALERT AND WANTS TO WALKED AROUND AFTER PAIN MEDICATION GIVEN , BUT I SPOKE TO HER THAT SHE BETTER STAYED IN BED BECAUSE SHE JUST HAD HER PAIN MEDS AND FOR HER SAFETY , SHE STATED "OK THANK YOU ". WILL CONTINUE MONITORING . PLACE CALL LIGHT AT REACH.
[2016-07-14] MEDS: CEFTRIAXONE 1 G in IV D5W 50 ML IV SCH (22:18)
[2016-07-15] MEDS: ZOLPIDEM TARTRATE 5 MG TABLET PO SCH ×2 (00:02→22:23)
--- NOTE | 2016-07-15 00:02 | NUR ---
HAND SIGN WRITER/NOTES PT CALLED AND ASKING FOR AMBIEN , AMBIEN GIVEN ORDERED. SAFETY PRECAUTION IMPLEMENTED AND OBSERVED. WILL CONTINUE TO MONITOR. PLACE CALL LIGHT AT REACH.
--- NOTE | 2016-07-15 04:57 | NUR ---
FINISHER SCREWDOWN/NOTES PT SLEEPING COMFORTABLY IN BED WITHOUT ANY ACUTE DISTRESS NOTED. KEPT HER WARM AND COMFORTABLE AT ALL TIMES. PLACE CALL LIGHT AT REACH. WILL CONTINUE TO MONITOR.
[2016-07-15] MEDS: BLOOD SUGAR DIAGNOSTIC 1 EACH STRIP IN SCH ×4 (06:20→21:44)
[2016-07-15] MEDS: INSULIN REGULAR, HUMAN 100 UNIT/ML 3 ML VIAL SQ PRN ×3 (06:20→17:12)
[2016-07-15] MEDS: PANTOPRAZOLE 40 MG TABLET.DR PO SCH (06:21)
--- NOTE | 2016-07-15 07:19 | NUR ---
MS/ RN NOTES RECEIVED PATIENT AWAKE IN BED IN NO ACUTE SIGNS OF DISTRESS. ALERT AND ORIENTED 4, DENIES ANY PAIN OR DISCOMFORTS AT THIS TIME. ON ROOM AIR, NO SOB OBSERVED. IV ACCESS ON RIGHT FOREARM INTACT AND PATENT. ENDORSED FROM LEAD RIDER THAT PATIENT IS FOR DIALYSIS TODAY. CALL LIGHT WITHIN EASY REACH. BED LOW AND LOCKED. ALL SAFETY MEASURES MAINTAINED. WILL CONTINUE TO MONITOR ACCORDINGLY.
--- NOTE | 2016-07-15 07:30 | NUR ---
PELT SHEARER/CLOSING NOTES PT AWAKE AND ALERT , DENIES ANY PAIN AT THIS TIME. BLOOD SUGAR CHECKED DONE 214, 4 UNITS OF INSULIN GIVEN ORDERED. ALL DUE MEDS GIVEN AND STABLE RYAN THE NIGHT. KEPT HER WARM AND COMFORTABLE AT ALL TIMES. PLACE CALL LIGHT AT REACH. ENDORSE TO AM NURSE FOR CONTINUITY OF CARE.
[2016-07-15 07:41] LABS: INR 1.13 (0.87-1.13); PROTHROMBIN TIME 12.2 SECS (9.5-12.7)
[2016-07-15 08:00] VITALS: BP 110/60
--- NOTE | 2016-07-15 08:11 | NUR ---
RN NOTES PATIENT ON DIALYSIS AT THIS TIME. V/S PRE DIALYSIS TAKEN: BP 110/60, HR 109, RR 16 AND T 99F. WILL CONTINUE TO MONITOR.
[2016-07-15] MEDS: FLUTICASONE/SALMETEROL DISKUS IH SCH ×2 (08:45→16:45)
[2016-07-15] MEDS: PYRIDOXINE HCL 50 MG TABLET PO SCH (08:46)
[2016-07-15] MEDS: CINACALCET HCL 30 MG TABLET PO SCH (08:46)
[2016-07-15] MEDS: MONTELUKAST SODIUM (10MG) 10 MG TABLET PO SCH (08:46)
[2016-07-15] MEDS: NICOTINE PATCH (21MG) 21 MG PATCH.TD24 TD SCH (08:46)
[2016-07-15] MEDS: LACTOBACILLUS RHAMNOSUS GG 1 EACH CAP.SPRINK PO SCH ×2 (08:46→16:41)
[2016-07-15] MEDS: ASPIRIN 81 MG TAB.CHEW PO SCH (08:46)
[2016-07-15] MEDS: ATORVASTATIN 40 MG TABLET PO SCH (08:46)
[2016-07-15] MEDS: AMLODIPINE BESYLATE 5 MG TABLET PO SCH (09:00)
[2016-07-15] MEDS: DILTIAZEM HCL 30 MG TABLET PO SCH ×4 (09:00→21:54)
[2016-07-15] MEDS: LOSARTAN POTASSIUM 50 MG TABLET PO SCH ×2 (09:00→16:41)
[2016-07-15] MEDS: METOPROLOL TARTRATE 25 MG TABLET PO SCH ×2 (09:00→16:41)
[2016-07-15] MEDS: FUROSEMIDE 80 MG TABLET PO SCH (09:00)
[2016-07-15] MEDS: APIXABAN 5 MG TABLET PO SCH ×2 (10:07→16:44)
[2016-07-15] MEDS: oxyCODONE/APAP (5/325 MG) 1 UDTAB TABLET PO PRN ×2 (10:15→16:40)
--- NOTE | 2016-07-15 10:19 | NUR ---
RN NOTES PATIENT'S DIALYSIS COMPLETED WITHOUT ANY COMPLICATIONS. PATIENT ALERT AND ORIENTED X 4. HD OUTPUT WAS 1000ML. WILL CONTINUE TO MONITOR.
[2016-07-15 16:00] VITALS: BP 119/52
--- NOTE | 2016-07-15 17:19 | NUR ---
RN NOTES PATIENT NOTED WITH HIGH BLOOD SUGAR OF 429MG/DL. PATIENT DOESN'T SHOW ANY PHYSICAL SIGNS OF HYPERGLYCEMIA. SHES ALERT AND ORIENTED. RECHECKED BLOOD SUGAR AND WAS 410MG/DL. 10 UNITS OF REGULAR INSULIN ORDERED GIVEN AND CALLED GURINDER MACK WITH NO NEW ORDER MADE. PATIENT TAKES LEVEMIR 90UNITS @ 1800H. WILL CONTINUE TO MONITOR.
[2016-07-15] MEDS: INSULIN DETEMIR 100 UNIT/ML CARTRIDGE SQ SCH (18:09)
--- NOTE | 2016-07-15 18:51 | NUR ---
RN NOTES PATIENT'S BLOOD SUGAR AT 6PM WAS 395MG/DL, STANDING ORDER OF LEVEMIR 90U GIVEN ORDER. MD MADE AWARE OF LATEST BLOOD SUGAR AND ORDERED TO GIVE ADDITIONAL 10 UNITS OF REGULAR INSULIN. WILL CONTINUE TO MONITOR.
--- NOTE | 2016-07-15 18:53 | NUR ---
MS RN CLOSING NOTES PATIENT IN HER ROOM SITTING ON THE CHAIR IN NO ACUTE SIGNS OF DISTRESS. ALERT AND ORIENTED X 3. ALL NEEDS AND CARE WELL PROVIDED. IV ACESS INTACT AND PATENT. ALL DUE MEDS GIVEN ORDERED. CALL LIGHT WITHIN REACH AND KEPT BED AND LOW. WILL ENDORSE TO INFORMATION SECURITY ARCHITECT RN FOR CONTINUITY OF CARE
[2016-07-15] MEDS ORDERED: INSULIN REGULAR, HUMAN 100 UNIT/ML 10 ML VIAL SQ ONE (19:00)
--- NOTE | 2016-07-15 19:40 | NUR ---
RN OPENING NOTES RECEIVED REPORT FROM DAYSHIFT RNFIDENCIO. FOUND Pt AWAKE, WATCHING TV IN BED. Pt IS A/OX4, VERBAL, ABLE TO MAKE NEEDS KNOWN. NO S/S OF ACUTE DISTRESS OR SOB NOTED. IV ACCESS ON RFA #20G, SL. SAFETY MEASURES IN PLACE. BED LOW, LOCKED, HOB ELEVATED, SIDE RAILS UP, CALL LIGHT AND BEDSIDE TABLE WITHIN REACH. WILL CONTINUE TO MONITOR Pt THROUGHOUT THE NIGHT FOR SAFETY.
[2016-07-15 19:56] VITALS: BP 118/50
[2016-07-15] MEDS ORDERED: DEXTROSE 50%-WATER 50 ML DISP.SYRIN IV PRN (21:30)
[2016-07-15] MEDS: *INSULIN REGULAR(HUMULIN R)HUM 100 UNIT/ML VIAL SQ PRN (21:47)
[2016-07-15] MEDS: CARISOPRODOL 350 MG TABLET PO PRN (21:53)
[2016-07-15] MEDS: CEFTRIAXONE 1 G in IV D5W 50 ML IV SCH (21:59)
--- NOTE | 2016-07-16 | NUR ---
RN NOTES CARDIZEM HELD DUE TO LOW BP OF 93/56 P 127. PATIENT ALSO CURRENTLY RECEIVING DIALYSIS. WILL CONTINUE TO MONITOR.
--- NOTE | 2016-07-16 06:50 | NUR ---
RN CLOSING NOTES AM BG CHECK 83. NO INSULIN COVERAGE NEEDED. NO S/S OF HYPOGLYCEMIA NOTED. Pt IS ALERT AND RESPONSIVE. NO OTHER SIGNIFICANT CHANGES NOTED DURING THE NIGHT. NO S/S OF ACUTE DISTRESS OR SOB NOTED. ALL NEEDS MET AND ATTENDED TO. SAFETY MEASURES IN PLACE. WILL ENDORSE TO DAYSHIFT RN FOR Pt's TAWNY & SAFETY.
[2016-07-16] MEDS: BLOOD SUGAR DIAGNOSTIC 1 EACH STRIP IN SCH ×3 (06:53→18:04)
--- NOTE | 2016-07-16 07:30 | NUR ---
MS RN RECEIVED ON BED, AWAKE,ALERT,ORIENTED X4,NOT IN ANY FORM OF DISTRESS, RESPIRATIONS EVEN AND UNLABORED,NO SOB NOTED, LUNGS ARE CLEAR,ABDOMEN SOFT,POSITIVE BOWEL SOUNDS,DENIES PAIN AT THIS TIME, WILL MONITOR PATIENT'S CONDITION.
[2016-07-16 08:00] VITALS: BP 124/57
--- NOTE | 2016-07-16 08:30 | NUR ---
MS SILVER BREAKFAST SERVED,DUE MEDS GIVEN,TOLERATED WELL.
[2016-07-16 08:33] LABS: BASOPHILS % (AUTO) 0.3 % (0.0-2.0); EOSINOPHILS # (AUTO) 0.3 /CMM (0.0-0.7); EOSINOPHILS % (AUTO) 3.2 % (0.0-6.0); HEMATOCRIT 22 % (33-45); LYMPHOCYTES # (AUTO) 1.7 /CMM (0.8-4.8); LYMPHOCYTES % (AUTO) 18.3 % (20.0-44.0); MEAN CORPUSCULAR HEMOGLOBIN 32 PG (26.0-33.0); MEAN CORPUSCULAR HGB CONC 32 g/dl (31.0-36.0); MEAN CORPUSCULAR VOLUME 100 fL (82-100); MONOCYTES # (AUTO) 1.3 /CMM (0.1-1.30); MONOCYTES % (AUTO) 13.1 % (2.0-12.0); NEUTROPHILS # (AUTO) 6.2 /CMM (1.8-8.9); NEUTROPHILS % (AUTO) 65.1 % (43.0-81.0); PLATELET COUNT (AUTO) 450 /CMM (150-450); RDW COEFFICIENT OF VARIATION 15.1 (11.5-15.0); RED BLOOD CELL COUNT(AUTO) 2.15 MIL/uL (4.0-5.2); WHITE BLOOD COUNT (AUTO) 9.6 K/uL (4.3-11.0)
[2016-07-16] MEDS: FUROSEMIDE 80 MG TABLET PO SCH (08:36)
[2016-07-16] MEDS: NICOTINE PATCH (21MG) 21 MG PATCH.TD24 TD SCH (08:36)
[2016-07-16] MEDS: PYRIDOXINE HCL 50 MG TABLET PO SCH (08:36)
[2016-07-16] MEDS: LACTOBACILLUS RHAMNOSUS GG 1 EACH CAP.SPRINK PO SCH ×2 (08:36→18:01)
[2016-07-16] MEDS: MONTELUKAST SODIUM (10MG) 10 MG TABLET PO SCH (08:36)
[2016-07-16] MEDS: ATORVASTATIN 40 MG TABLET PO SCH (08:37)
[2016-07-16] MEDS: PANTOPRAZOLE 40 MG TABLET.DR PO SCH (08:37)
[2016-07-16] MEDS: ASPIRIN 81 MG TAB.CHEW PO SCH (08:37)
[2016-07-16] MEDS: CINACALCET HCL 30 MG TABLET PO SCH (08:37)
[2016-07-16 08:38] LABS: CALCIUM, SERUM 8.8 mg/dL (8.5-10.1); CREATININE 6.3 mg/dL (0.6-1.3); MAGNESIUM 2.5 mg/dL (1.8-2.4); PHOSPHORUS 3.2 mg/dL (2.5-4.9); POTASSIUM 4.7 mmol/L (3.5-5.1)
[2016-07-16] MEDS: METOPROLOL TARTRATE 25 MG TABLET PO SCH ×2 (08:38→18:01)
[2016-07-16] MEDS: FLUTICASONE/SALMETEROL DISKUS IH SCH ×2 (08:39→18:01)
[2016-07-16] MEDS: APIXABAN 5 MG TABLET PO SCH ×2 (08:39→18:04)
[2016-07-16] MEDS: DILTIAZEM HCL 30 MG TABLET PO SCH ×4 (08:48→21:00)
[2016-07-16 08:50] LABS: HEMOGLOBIN 6.8 g/dL (11.5-14.8)
[2016-07-16] MEDS: LOSARTAN POTASSIUM 50 MG TABLET PO SCH ×2 (09:00→18:01)
--- NOTE | 2016-07-16 09:00 | NUR ---
MS ADRIANNE WAS SEEN BY SHELLEY Martinez/ ORDERS MADE AND CARRIED OUT.
[2016-07-16 09:19] LABS: EOSINOPHILS % (MANUAL) 2 % (0-4); LYMPHOCYTES % (MANUAL) 19 % (16-48); MONOCYTES % (MANUAL) 6 % (0-11.0); NEUTROPHILS % (MANUAL) 73 (42-76)
[2016-07-16 09:20] LABS: HYPOCHROMASIA 1+; PLATELET ESTIMATE INCREASED
[2016-07-16 10:31] LABS: BASOPHILS # (AUTO) 0.1 /CMM (0.0-0.2); BASOPHILS % (AUTO) 0.5 % (0.0-2.0); EOSINOPHILS # (AUTO) 0.3 /CMM (0.0-0.7); EOSINOPHILS % (AUTO) 2.6 % (0.0-6.0); HEMATOCRIT 21 % (33-45); LYMPHOCYTES # (AUTO) 1.7 /CMM (0.8-4.8); LYMPHOCYTES % (AUTO) 15.3 % (20.0-44.0); MEAN CORPUSCULAR HEMOGLOBIN 32 PG (26.0-33.0); MEAN CORPUSCULAR HGB CONC 32 g/dl (31.0-36.0); MEAN CORPUSCULAR VOLUME 100 fL (82-100); MONOCYTES # (AUTO) 1.3 /CMM (0.1-1.30); MONOCYTES % (AUTO) 11.9 % (2.0-12.0); NEUTROPHILS # (AUTO) 7.5 /CMM (1.8-8.9); NEUTROPHILS % (AUTO) 69.7 % (43.0-81.0); PLATELET COUNT (AUTO) 422 /CMM (150-450); RED BLOOD CELL COUNT(AUTO) 2.13 MIL/uL (4.0-5.2); WHITE BLOOD COUNT (AUTO) 10.8 K/uL (4.3-11.0)
[2016-07-16 10:44] LABS: HEMOGLOBIN 6.8 g/dL (11.5-14.8)
[2016-07-16] MEDS: CARISOPRODOL 350 MG TABLET PO PRN ×2 (11:01→22:46)
[2016-07-16] MEDS: AMLODIPINE BESYLATE 5 MG TABLET PO SCH (13:23)
[2016-07-16] MEDS: INSULIN REGULAR, HUMAN 100 UNIT/ML 3 ML VIAL SQ PRN ×2 (13:27→18:07)
[2016-07-16] MEDS ORDERED: BLOOD IV SET 1 EA INFUS.SET MC ONE (15:18)
[2016-07-16] MEDS ORDERED: IV NS 0.9% 250 ML IV ONE (15:18)
[2016-07-16 15:47] VITALS: BP 125/76
[2016-07-16 16:00] VITALS: BP_SYST 104; BP_SYST 107; BP_DIAS 68; BP_DIAS 70
[2016-07-16] MEDS ORDERED: VANCOMYCIN 1 GM in IV D5W 250 ML IV ONE (16:00)
--- NOTE | 2016-07-16 16:00 | NUR ---
MS RN STARTED ON BLOOD TRANSFUSION, NO ADVERSE REACTION NOTED.
[2016-07-16] MEDS: oxyCODONE/APAP (5/325 MG) 1 UDTAB TABLET PO PRN (16:03)
[2016-07-16 16:30] VITALS: BP 124/97
[2016-07-16] MEDS: METOCLOPRAMIDE HCL 10 MG TABLET PO PRN (16:31)
--- NOTE | 2016-07-16 16:53 | NUR ---
MS RN STILL ON BT, NO DISTRESS NOTED.
[2016-07-16] MEDS: INSULIN DETEMIR 100 UNIT/ML CARTRIDGE SQ SCH (18:06)
--- NOTE | 2016-07-16 18:16 | NUR ---
MS RN BLOOD TRANSFUSION DONE, NO ADVERSE REACTION NOTED.VANCO IV STARTED.
[2016-07-16] MEDS ORDERED: SECONDARY IV SET 1 EA INFUS.SET MC ONE (18:18)
[2016-07-16 18:19] VITALS: BP 122/67
--- NOTE | 2016-07-16 19:20 | NUR ---
RN OPEN NOTES RECEIVED PATIENT AWAKE IN BED. A/O X4. NO SIGNS OF DISTRESS OR DISCOMFORT. BREATHING EVEN AND CPSDX0MGX. IV ACCESS IN RFA WITH VANCO CURRENTLY INFUSING, PATENT AND INTACT, NO SIGNS OF REDNESS OR INFILTRATION. DRESSING ON LEFT LEG C/D/I. BED IN LOW LOCKED POSITION WITH SIDE RAILS X2. CALL LIGHT WITHIN REACH. WILL CONTINUE TO MONITOR.
--- NOTE | 2016-07-16 19:22 | NUR ---
MS RN ON BED,NO DISTRESS NOTED.
[2016-07-16 20:00] VITALS: BP 93/56
--- NOTE | 2016-07-16 20:00 | NUR ---
RN NOTES PATIENT STARTED ON HEMODIALYSIS AT BEDSIDE ORDERED. DIALYSIS NURSE AT BEDSIDE FOR MONITORING. WILL CONTINUE TO MONITOR.
--- NOTE | 2016-07-16 22:46 | NUR ---
RN NOTES ADMINISTERED SOMA 350MG ORDERED FOR GENERALIZED PAIN 09/06. WILL CONTINUE TO MONITOR.
--- NOTE | 2016-07-16 23:30 | NUR ---
MS RN NOTES HD FINISHED WITH AN OUTPUT OF 2.2L. WILL CONTINUE TO MONITOR.
[2016-07-17] MEDS: BLOOD SUGAR DIAGNOSTIC 1 EACH STRIP IN SCH ×3 (00:04→12:23)
[2016-07-17] MEDS: *INSULIN REGULAR(HUMULIN R)HUM 100 UNIT/ML VIAL SQ PRN (00:06)
[2016-07-17] MEDS: CEFTRIAXONE 1 G in IV D5W 50 ML IV SCH (00:07)
[2016-07-17] MEDS: ZOLPIDEM TARTRATE 5 MG TABLET PO SCH (00:39)
[2016-07-17] MEDS ORDERED: IV SET PRIMARY PUMP SET 1 EA INFUS.SET MC ONE (01:12)
[2016-07-17] MEDS ORDERED: SECONDARY IV SET 1 EA INFUS.SET MC ONE (01:13)
[2016-07-17] MEDS ORDERED: IV NS 0.9% 250 ML IV ONE (01:13)
[2016-07-17] MEDS ORDERED: VANCOMYCIN 500 MG in IV D5W 100 ML IV PRN (06:00)
[2016-07-17] MEDS: INSULIN REGULAR, HUMAN 100 UNIT/ML 3 ML VIAL SQ PRN ×2 (06:46→12:29)
--- NOTE | 2016-07-17 06:58 | NUR ---
RN CLOSING NOTES PATIENT RESTING IN BED. A/O X4. NO SIGNS OF DISTRESS OR DISCOMFORT. BREATHING EVEN AND [id number]. IV ACCESS IN RFA , PATENT AND INTACT, NO SIGNS OF REDNESS OR INFILTRATION. DRESSING ON LEFT LEG C/D/I. ALL NEEDS MET. NO SIGNIFICANT CHANGES THROUGH THE NIGHT. PATIENT KEPT CLEAN DRY AND COMFORTABLE. BED IN LOW LOCKED POSITION WITH SIDE RAILS X2. CALL LIGHT WITHIN REACH. WILL ENDORSE TO AM SHIFT FOR TAWNY.
--- NOTE | 2016-07-17 07:50 | NUR ---
RN OPEN NOTES RECEIVED REPORT FROM NEUROPSYCHIATRIC AIDE NURSE. PATIENT IS IN BED, ALERT AND ORIENTED TO NAME, TIME AND PLACE. BED IS IN LOW POSITION, LOCKED AND 2 SIDE RAILS ARE UP. IV SITE IS INTACT AND POTENT. NO SIGNS OR SYMPTOMS OF DISTRESS. WILL CONTINUE TO MONITOR AND ASSESS PATIENT.
[2016-07-17 07:58] LABS: BASOPHILS % (AUTO) 0.2 % (0.0-2.0); EOSINOPHILS # (AUTO) 0.3 /CMM (0.0-0.7); EOSINOPHILS % (AUTO) 2.8 % (0.0-6.0); HEMATOCRIT 23 % (33-45); HEMOGLOBIN 7.4 g/dL (11.5-14.8); LYMPHOCYTES # (AUTO) 1.4 /CMM (0.8-4.8); MEAN CORPUSCULAR HEMOGLOBIN 31 PG (26.0-33.0); MEAN CORPUSCULAR HGB CONC 32 g/dl (31.0-36.0); MEAN CORPUSCULAR VOLUME 98 fL (82-100); MONOCYTES # (AUTO) 1.3 /CMM (0.1-1.30); MONOCYTES % (AUTO) 13.7 % (2.0-12.0); NEUTROPHILS # (AUTO) 6.5 /CMM (1.8-8.9); NEUTROPHILS % (AUTO) 68.3 % (43.0-81.0); PLATELET COUNT (AUTO) 401 /CMM (150-450); RDW COEFFICIENT OF VARIATION 15.9 (11.5-15.0); RED BLOOD CELL COUNT(AUTO) 2.37 MIL/uL (4.0-5.2); WHITE BLOOD COUNT (AUTO) 9.6 K/uL (4.3-11.0)
[2016-07-17] MEDS: FLUTICASONE/SALMETEROL DISKUS IH SCH (08:32)
[2016-07-17 08:33] LABS: CALCIUM, SERUM 8.6 mg/dL (8.5-10.1); CREATININE 5.3 mg/dL (0.6-1.3); MAGNESIUM 2.2 mg/dL (1.8-2.4); PHOSPHORUS 3.1 mg/dL (2.5-4.9); POTASSIUM 4.4 mmol/L (3.5-5.1)
[2016-07-17] MEDS: NICOTINE PATCH (21MG) 21 MG PATCH.TD24 TD SCH (08:36)
[2016-07-17] MEDS: LACTOBACILLUS RHAMNOSUS GG 1 EACH CAP.SPRINK PO SCH (08:38)
[2016-07-17] MEDS: CINACALCET HCL 30 MG TABLET PO SCH (08:38)
[2016-07-17] MEDS: ASPIRIN 81 MG TAB.CHEW PO SCH (08:39)
[2016-07-17] MEDS: ATORVASTATIN 40 MG TABLET PO SCH (08:39)
[2016-07-17] MEDS: PYRIDOXINE HCL 50 MG TABLET PO SCH (08:39)
[2016-07-17] MEDS: PANTOPRAZOLE 40 MG TABLET.DR PO SCH (08:40)
[2016-07-17] MEDS: MONTELUKAST SODIUM (10MG) 10 MG TABLET PO SCH (08:40)
[2016-07-17] MEDS: APIXABAN 5 MG TABLET PO SCH (08:41)
[2016-07-17] MEDS: DILTIAZEM HCL 30 MG TABLET PO SCH ×2 (08:42→12:27)
[2016-07-17] MEDS: LOSARTAN POTASSIUM 50 MG TABLET PO SCH (08:42)
[2016-07-17] MEDS: FUROSEMIDE 80 MG TABLET PO SCH (08:43)
[2016-07-17] MEDS: METOPROLOL TARTRATE 25 MG TABLET PO SCH (08:43)
[2016-07-17] MEDS: AMLODIPINE BESYLATE 5 MG TABLET PO SCH (08:43)
[2016-07-17 09:11] VITALS: BP 92/51
[2016-07-17] MEDS ORDERED: SULF1TAB48 PO (10:49)
[2016-07-17 12:27] VITALS: BP 119/65
--- NOTE | 2016-07-17 15:30 | NUR ---
DOLL SURGEON NOTES PATIENT DISCHARGE INSTRUCTION RECEIVED AND EXPLAINED TO PATIENT. PATIENT RECEIVED DISCHARGE INSTRUCTION AND VERBALIZED UNDERSTANDING. PATIENT CONDITION IS STABLE AT TIME OF DISCHARGE AND STABLE VITAL SIGNS. NO SIGN AND SYMPTOMS OF DISTRESS. DENIED PAIN. IV SITE REMOVED. ID BAND REMOVED. ID BLOOD REMOVED. PATIENT ESCORTED TO [facility] VIA WHEELCHAIR ACCOMPANIED BY A PASSENGER BRAKEMAN AND HER . HER DAUGHTER, DENISE, WAITED DOWNSTAIR TO MAINTENANCE ASSISTANT AND DRIVE THE PATIENT HOME. ALL PATIENT BELONGING WITH PATIENT AT TIME OF DISCHARGE. WOUND PICTURES WERE TAKEN AND PLACED IN THE CHART.
== END 2016-07-17 15:35 | disposition home or self-care (01) | DRG 720 ==
LOC: ER 16:55 → TELE 20:12 → MED 07-12 09:21
PROVIDERS: ADMIT Nurse Practitioner Acute Care; ATTEND Nurse Practitioner Acute Care
PROC: 5A1D60Z (ICD-10-PCS; principal; 2016-07-12)
PROC: 30233N1 Transfusion of Nonautologous Red Blood Cells into Peripheral Vein, Percutaneous Approach (ICD-10-PCS; 2016-07-16)
DX: A41.9 Sepsis, unspecified organism (principal); D68.9 Coagulation defect, unspecified; I12.0 Hypertensive chronic kidney disease with stage 5 chronic kidney disease or end stage renal disease; D68.59 Other primary thrombophilia; N18.6 End stage renal disease; I74.09 Other arterial embolism and thrombosis of abdominal aorta; E11.22 Type 2 diabetes mellitus with diabetic chronic kidney disease; E11.622 Type 2 diabetes mellitus with other skin ulcer; E87.1 Hypo-osmolality and hyponatremia; D64.9 Anemia, unspecified; E78.5 Hyperlipidemia, unspecified; E87.5 Hyperkalemia; J45.909 Unspecified asthma, uncomplicated; I48.91 Unspecified atrial fibrillation; L03.116 Cellulitis of left lower limb; I73.9 Peripheral vascular disease, unspecified; I25.10 Atherosclerotic heart disease of native coronary artery without angina pectoris; J44.9 Chronic obstructive pulmonary disease, unspecified; K21.9 Gastro-esophageal reflux disease without esophagitis; D69.2 Other nonthrombocytopenic purpura; F17.210 Nicotine dependence, cigarettes, uncomplicated; Z79.01 Long term (current) use of anticoagulants; Z99.2 Dependence on renal dialysis; E88.09 Other disorders of plasma-protein metabolism, not elsewhere classified; D75.89 Other specified diseases of blood and blood-forming organs; Z88.0 Allergy status to penicillin; S70.12XA Contusion of left thigh, initial encounter; X58.XXXA Exposure to other specified factors, initial encounter; Y93.9 Activity, unspecified; Y92.009 Unspecified place in unspecified non-institutional (private) residence as the place of occurrence of the external cause; Y99.9 Unspecified external cause status; I87.333 Chronic venous hypertension (idiopathic) with ulcer and inflammation of bilateral lower extremity; L97.919 Non-pressure chronic ulcer of unspecified part of right lower leg with unspecified severity; E83.9 Disorder of mineral metabolism, unspecified; E11.621 Type 2 diabetes mellitus with foot ulcer; L97.519 Non-pressure chronic ulcer of other part of right foot with unspecified severity; L97.529 Non-pressure chronic ulcer of other part of left foot with unspecified severity; Z79.84 Long term (current) use of oral hypoglycemic drugs
CPT/HCPCS: 36415; 71010-TC; 73701-TC; 80048-TC; 80076-TC; 80202-TC; 82962-TC; 83605-TC; 83735-TC; 84100-TC; 84484-TC; 85025-TC; 85610-TC; 85730-TC; 86850-TC; 86921-TC; 87040-TC; 87081-TC; 90935-TC; 93925-TC; 93970-TC; 94799-TC; A4606; A6253; A6402; A6403; J0696; J0885; J1815; J3370; J7040; J7050; J7060; J8597; P9016-BL; Q9967; Z7610